=== PATIENT | male | born 1965 | race Caucasian/White ===

== ENCOUNTER 2019-01-04 16:50 | Inpatient (IN) | payer MEDICAID ==
[2019-01-04] MEDS ORDERED: Ondansetron 4 MG/2 ML SDV IVPUSH ONE (18:09)
[2019-01-04] MEDS ORDERED: HYDROmorphone 0.5 MG/0.5 ML Syringe IVPUSH ONE ×2 (18:09→19:01)
[2019-01-04] MEDS ORDERED: Sodium Chloride 0.9% 1,000 ML IV SCH (18:15)
--- NOTE | 2019-01-04 18:20 | EDM.PDOC ---
ED HPI GENERAL MEDICAL PROBLEM - General Chief Complaint: Abdominal Pain Stated Complaint: THORWING UP BLOOD Time Seen by Provider: 01/04/19 18:00 Source of Information: Reports: Patient, Family History Limitations: Reports: No Limitations - History of Present Illness INITIAL COMMENTS - FREE TEXT/NARRATIVE: 53-year-old male with severe abdominal pain, today he has now developed hematemesis. He has been ill for 10 days, he developed lower abdominal pain after lifting and was evaluated in the clinic for a possible hernia. He was evaluated again yesterday for illness and was felt to have a flulike syndrome, gastroenteritis and was started on ciprofloxacin and metronidazole. His white count was elevated yesterday but otherwise his labs were reasonably normal. Today he feels worse, still has diarrhea, and is getting weaker. No radiation of pain to the back, he has some groin or testicular pain but no dysuria. Onset: Gradual Duration: Day(s): (Has been ill for 10 days, increased abdominal pain over the past 2-3 days) Location: Reports: Abdomen Quality: Reports: Ache, Sharp Improves with: Reports: None Worsens with: Reports: Movement Associated Symptoms: Reports: Fever/Chills (Has had fever and chills over the past week, his fever just "broke today".), Malaise, Nausea/Vomiting, Weakness, Other (Hematemesis developed today). Denies: Chest Pain, Cough, Shortness of Breath Abdominal Pain Score (Numeric/FACES): 10 - Related Data Allergies Allergy/AdvReac Type Severity Reaction Status Date / Time No Known Allergies Allergy Verified 01/04/19 17:34 Home Meds: Home Meds Ciprofloxacin [Ciprofloxacin HCl] 500 mg PO BID 01/04/19 [History] metroNIDAZOLE [Flagyl] 500 mg PO TID 01/04/19 [History] Past Medical History Gastrointestinal History: Reports: GERD Musculoskeletal History: Reports: Fracture - Infectious Disease History Infectious Disease History: Reports: Chicken Pox Social & Family History - Tobacco Use Smoking Status *Q: Former Smoker Used Tobacco, but Quit: Yes Month/Year Tobacco Last Used: 3.5 years - Caffeine Use Caffeine Use: Reports: Coffee - Recreational Drug Use Recreational Drug Use: Yes Recreational Drug Type: Reports: Marijuana/Hashish ED ROS GENERAL - Review of Systems Review Of Systems: See Below Constitutional: Reports: Fever, Chills, Malaise, Decreased Appetite HEENT: Reports: No Symptoms Respiratory: Denies: Shortness of Breath, Cough Cardiovascular: Denies: Chest Pain GI/Abdominal: Reports: Abdominal Pain, Diarrhea, Hematemesis, Nausea, Vomiting : Reports: Other (Some testicular discomfort) Skin: Reports: Diaphoresis Neurological: Reports: Weakness Psychiatric: Reports: No Symptoms ED EXAM, GI/ABD - Physical Exam Exam: See Below Exam Limited By: No Limitations General Appearance: Alert, Moderate Distress Eyes: Bilateral: Normal Appearance (No jaundice) Head: Atraumatic Respiratory/Chest: No Respiratory Distress, Lungs Clear Cardiovascular: Regular Rate, Rhythm, Tachycardia GI/Abdominal Exam: Tender (Very tender diffusely with guarding and rebound, no significant distention), Abnormal Bowel Sounds (Very hypoactive) Extremities: Normal Inspection. No: Pedal Edema Neurological: Alert, Oriented Psychiatric: Flat Affect Skin Exam: Warm, Diaphoretic Course - Vital Signs Last Recorded V/S: Last Vital Signs Temp 94.3 F L 01/04/19 20:40 Pulse 98 01/04/19 20:40 Resp 16 01/04/19 20:40 BP 127/81 01/04/19 20:40 Pulse Ox 97 01/04/19 20:40 - Orders/Labs/Meds Orders: Active Orders 24 hr Category Date Time Status Sodium Chloride 0.9% [Normal Saline] 1,000 ml Med 01/04/19 18:15 Active IV ASDIRECTED Medication Orders Diphenhydramine HCl (Benadryl) 25 - 50 mg IVPUSH Q4H PRN PRN Reason: Itching Diphenhydramine HCl (Benadryl) 25 - 50 mg PO Q4H PRN PRN Reason: Itching Last Admin: 01/04/19 22:27 Dose: 50 mg Fentanyl (Sublimaze) 10 - 30 mcg IVPUSH Q1H PRN PRN Reason: Pain (severe 7-10) Last Admin: 01/04/19 22:26 Dose: 30 mcg Sodium Chloride (Normal Saline) 1,000 mls @ 500 mls/hr IV ASDIRECTED FREDRICK Last Admin: 01/04/19 18:11 Dose: 500 mls/hr Piperacillin Sod/Tazobactam (Sod 4.5 gm/ Sodium Chloride) 100 mls @ 100 mls/hr IV Q8H FREDRICK Last Admin: 01/04/19 21:01 Dose: 100 mls/hr Promethazine HCl 12.5 mg/ (Sodium Chloride) 50.5 mls @ 200 mls/hr IV Q6H PRN PRN Reason: Nausea/Vomiting Sodium Chloride (Normal Saline) 1,000 mls @ 125 mls/hr IV ASDIRECTED [facility] Morphine Sulfate (Morphine) 1 - 3 mg IVPUSH Q1H PRN PRN Reason: Pain Last Admin: 01/04/19 20:47 Dose: 2 mg Nicotine (Habitrol) 14 mg TRDERM DAILY PRN PRN Reason: smoking Ondansetron HCl (Zofran) 4 mg IVPUSH Q8H PRN PRN Reason: Nausea/Vomiting Scopolamine (Transderm-Scop) 1.5 mg TOP ONETIME PRN PRN Reason: Nausea Labs: Laboratory Tests 01/04/19 01/04/19 01/04/19 Range/Units 18:08 18:08 18:08 WBC 7.9 (4.5-11.0) K/uL RBC 5.59 (4.30-5.90) M/uL Hgb 17.5 H (12.0-15.0) g/dL Hct 50.6 (40.0-54.0) % MCV 91 (80-98) fL MCH 31 (27-31) pg MCHC 35 (32-36) % Plt Count 380 (150-400) K/uL Add Manual Diff Yes Neutrophils % (Manual) 61 (36-66) % Band Neutrophils % 10 (5-11) % Lymphocytes % (Manual) 15 L (24-44) % Monocytes % (Manual) 13 H (2-6) % Eosinophils % (Manual) 1 L (2-4) % Sodium 133 L (140-148) mmol/L Potassium 3.4 L (3.6-5.2) mmol/L Chloride 94 L (100-108) mmol/L Carbon Dioxide 26 (21-32) mmol/L Anion Gap 16.4 H (5.0-14.0) mmol/L BUN 18 (7-18) mg/dL Creatinine 2.0 H (0.8-1.3) mg/dL Est Cr Clr Drug Dosing 47.25 mL/min Estimated GFR (MDRD) 35 L (>60) Glucose 210 H (74-106) mg/dL Calcium 9.2 (8.5-10.1) mg/dL Total Bilirubin 1.1 H (0.2-1.0) mg/dL AST 59 H (15-37) U/L ALT 86 H (12-78) U/L Alkaline Phosphatase 144 H (46-116) U/L C-Reactive Protein 28.76 H (0.0-0.3) mg/dL Total Protein 7.3 (6.4-8.2) g/dL Albumin 2.5 L (3.4-5.0) g/dL Globulin 4.8 H (2.3-3.5) g/dL Albumin/Globulin Ratio 0.5 L (1.2-2.2) Amylase 13 L (25-115) U/L Lipase 41 L (73-393) U/L Meds: Medications Generic Name Dose Route Start Last Admin Trade Name Freq PRN Reason Stop Dose Admin Diphenhydramine HCl 25 - 50 mg 01/04/19 20:25 Benadryl IVPUSH Q4H PRN Itching Diphenhydramine HCl 25 - 50 mg 01/04/19 20:26 01/04/19 22:27 Benadryl PO 50 mg Q4H PRN Administration Itching Fentanyl 10 - 30 mcg 01/04/19 20:37 01/04/19 22:26 Sublimaze IVPUSH 30 mcg Q1H PRN Administration Pain (severe 7-10) Sodium Chloride 1,000 mls @ 500 mls/hr 01/04/19 18:15 01/04/19 18:11 Normal Saline IV 500 mls/hr ASDIRECTED FREDRICK Administration Piperacillin Sod/Tazobactam 100 mls @ 100 mls/hr 01/04/19 21:00 01/04/19 21: 01 Sod 4.5 gm/ Sodium Chloride IV 100 mls/hr Q8H FREDRICK Administration Promethazine HCl 12.5 mg/ 50.5 mls @ 200 mls/hr 01/04/19 20:22 Sodium Chloride IV Q6H PRN Nausea/Vomiting Sodium Chloride 1,000 mls @ 125 mls/hr 01/04/19 20:30 Normal Saline IV ASDIRECTED FREDRICK Morphine Sulfate 1 - 3 mg 01/04/19 20:30 01/04/19 20:47 Morphine IVPUSH 2 mg Q1H PRN Administration Pain Nicotine 14 mg 01/04/19 20:28 Habitrol TRDERM DAILY PRN smoking Ondansetron HCl 4 mg 01/04/19 20:20 Zofran IVPUSH Q8H PRN Nausea/Vomiting Scopolamine 1.5 mg 01/04/19 20:20 Transderm-Scop TOP ONETIME PRN Nausea Discontinued Medications Generic Name Dose Route Start Last Admin Trade Name Freq PRN Reason Stop Dose Admin Hydromorphone HCl 0.5 mg 01/04/19 18:09 01/04/19 18:16 Dilaudid IVPUSH 01/04/19 18:10 0.5 mg ONETIME ONE Administration Hydromorphone HCl 0.5 mg 01/04/19 19:01 01/04/19 19:05 Dilaudid IVPUSH 01/04/19 19:02 0.5 mg ONETIME ONE Administration Ertapenem 1 gm/ Sodium 100 mls @ 200 mls/hr 01/04/19 19:11 01/04/19 19:39 Chloride IV 01/04/19 19:40 200 mls/hr ONETIME ONE Administration Ondansetron HCl 4 mg 01/04/19 18:09 01/04/19 18:15 Zofran IVPUSH 01/04/19 18:10 4 mg ONETIME ONE Administration - Re-Assessments/Exams Free Text/Narrative Re-Assessment/Exam: 01/04/19 18:45 This patient looks acutely ill. 1 L of normal saline bolus was initiated along with 4 mg of IV Zofran and 0.5 mg of IV Dilaudid. His records from the clinic were reviewed, CBC, CMP, amylase and lipase were drawn. His kidney function was normal yesterday, if they are still stable a CT of the abdomen with IV contrast will be obtained. 01/04/19 19:32 Creatinine is now 2.0, GFR 35. Patient is likely dehydrated, a CT of the abdomen and pelvis was done without contrast. This showed a perforated appendicitis. It was discussed with Dr. Grullon, and plans for inpatient admission with IV antibiotics and reevaluation tomorrow morning with likely surgery is planned. An additional 0.5 mg of IV Dilaudid was given and 1 g of Invanz ordered. Further orders per Dr. Grullon. Departure - Departure Time of Disposition: 20:16 Disposition: Admitted As Inpatient 68 Clinical Impression: Appendicitis Qualifiers: Appendicitis type: acute appendicitis Acute appendicitis type: with localized peritonitis Appendicitis perforation presence: with perforation Appendicitis abscess presence: without abscess - Discharge Information - My Orders Last 24 Hours: My Active Orders 01/04/19 18:15 Sodium Chloride 0.9% [Normal Saline] 1,000 ml IV ASDIRECTED - Assessment/Plan Last 24 Hours: My Active Orders 01/04/19 18:15 Sodium Chloride 0.9% [Normal Saline] 1,000 ml IV ASDIRECTED
[2019-01-04] MEDS ORDERED: Ertapenem 1 GM in Sodium Chloride 0.9% 100 ML IV ONE (19:11)
--- NOTE | 2019-01-04 19:15 | CRLCT ---
INDICATION: Severe abdominal pain. TECHNIQUE: Unenhanced helical CT of the abdomen and pelvis. Sagittal coronal reformats generated. Please note that all CT scans at this facility use dose modulation, iterative reconstruction and/or weight-based dosing when appropriate to reduce radiation does to as low as reasonably achievable. FINDINGS: Small pleural effusions right greater than left with bibasilar compressive atelectasis. Small irregular opacity in the most likely represents atelectasis adjacent to a fissure in the anterior right lung. Small pericardial effusion. Small volume abdominal pelvic ascites and pneumoperitoneum is noted. In the subhepatic space on the right there is an irregular collection of gas within the mesenteric fat with a small amount of fluid which may represent phlegmonous changes without a discrete organized abscess. The appendix appears to course through this region. The appendix is dilated and the constellation of findings are consistent with perforated acute appendicitis. Some oral contrast media is seen in the bowel. The unenhanced liver, spleen, adrenal glands and pancreas are unremarkable. The abdominal aorta is normal in caliber. No definite gallstones. Diverticulosis without evidence of diverticulitis. No gross bladder masses. Normal prostate size. The acute osseous findings. IMPRESSION : 1. Findings most consistent with perforated acute appendicitis as described. 2. Mild diverticulosis. 3. Small bilateral bibasilar pleural effusions right greater than left. 4. Results telephoned to and acknowledged by Dr. Chuck Arredondo at 1910 hours on 01/04/2019. Please note that all CT scans at this facility use dose modulation, iterative reconstruction, and/or weight-based dosing when appropriate to reduce radiation dose to as low as reasonably achievable. Dictated by Misael Sterling MD @ Jan 04 2019 7:04PM Signed by Dr. Misael Sterling @ Jan 04 2019 7:15PM
[2019-01-04] MEDS ORDERED: Scopolamine 1.5 MG Transdermal Patch TOP PRN (20:20)
[2019-01-04] MEDS ORDERED: Ondansetron 4 MG/2 ML SDV IVPUSH PRN (20:20)
[2019-01-04] MEDS ORDERED: Promethazine 12.5 MG in Sodium Chloride 0.9% 50 ML IV PRN (20:22)
[2019-01-04] MEDS ORDERED: diphenhydrAMINE 50 MG/ML SDV IVPUSH PRN (20:25)
[2019-01-04] MEDS ORDERED: diphenhydrAMINE 25 MG Cap PO PRN (20:26)
[2019-01-04] MEDS ORDERED: Nicotine 14 MG/24 Hr Patch TRDERM PRN (20:28)
[2019-01-04] MEDS ORDERED: fentaNYL 100 MCG/2 ML SDV IVPUSH ONE (20:31)
[2019-01-04] MEDS: Morphine 2 MG/ML Syringe IVPUSH PRN ×2 (20:47→23:18)
[2019-01-04] MEDS: Piperacillin/Tazobactam 4.5 GM in Sodium Chloride 0.9% 100 ML IV SCH (21:01)
[2019-01-04] MEDS: fentaNYL 100 MCG/2 ML SDV IVPUSH PRN (22:26)
[2019-01-04] MEDS: Sodium Chloride 0.9% 1,000 ML IV SCH (23:13)
[2019-01-05] MEDS: Morphine 2 MG/ML Syringe IVPUSH PRN ×5 (00:26→05:44)
[2019-01-05] MEDS: Piperacillin/Tazobactam 4.5 GM in Sodium Chloride 0.9% 100 ML IV SCH ×3 (04:38→19:45)
[2019-01-05] MEDS: fentaNYL 100 MCG/2 ML SDV IVPUSH PRN ×4 (06:45→09:47)
[2019-01-05] MEDS: Sodium Chloride 0.9% 1,000 ML IV SCH ×2 (07:52→15:06)
[2019-01-05] MEDS ORDERED: Neostigmine Methylsulfate 1 MG/ML 5 ML Syringe ONE (08:04)
[2019-01-05] MEDS ORDERED: Succinylcholine 200 MG/10 ML MDV ONE (08:04)
[2019-01-05] MEDS ORDERED: Propofol 200 MG/20 ML SDV ONE (08:04)
[2019-01-05] MEDS ORDERED: Ondansetron 4 MG/2 ML SDV ONE (08:04)
[2019-01-05] MEDS ORDERED: Dexamethasone 4 MG/ML SDV ONE (08:04)
[2019-01-05] MEDS ORDERED: Rocuronium 50 MG/5 ML Vial ONE (08:04)
[2019-01-05] MEDS ORDERED: Glycopyrrolate 0.2 MG/ML 5 ML MDV ONE (08:04)
[2019-01-05] MEDS ORDERED: fentaNYL 250 MCG/5 ML SDV ONE ×2 (08:05→10:30)
[2019-01-05] MEDS ORDERED: Bupivacaine 0.5%/EPINEPHrine 1:200,000 50 ML MDV ONE (09:02)
[2019-01-05] MEDS ORDERED: Lactated Ringers 1,000 ML ONE (10:56)
[2019-01-05] MEDS ORDERED: Meropenem 500 MG SDV ONE (10:59)
[2019-01-05] MEDS ORDERED: Ketorolac 60 MG/2 ML SDV ONE (11:18)
[2019-01-05] MEDS ORDERED: Sugammadex Sodium 200 MG/2 ML VIAL ONE (11:31)
[2019-01-05] MEDS ORDERED: hydrOXYzine HCl 100 MG/2 ML SDV IM ONE (11:40)
[2019-01-05] MEDS ORDERED: Piperacillin/Tazobactam/Dext 4.5 GM in Premix Bag 1 BAG IV SCH (12:00)
--- NOTE | 2019-01-05 13:49 | OR ---
DATE OF PROCEDURE: 01/05/2019 SURGEON: Alejandro Grullon MD PROCEDURE: Transversus abdominis plane block, bilaterally. COMPLICATION: None. UPKEEP WORKER: None. RISKS: Risks, benefits, alternatives, and limitations including, but not limited to infection, bleeding, and injury to abdominal structures were explained to the patient, and he wished to proceed. PROCEDURE IN DETAIL: The patient was placed in supine position. Left transversus plane was identified first under 11 megahertz ultrasound guidance probe. The needle was introduced and approximately 80% of the solution was injected under direct visualization. The opposite side was then performed in same manner, same fashion, same technique, and same sequence using the same equipment. This was same, except for different needle and syringe. The patient tolerated the procedure well. Alejandro Grullon MD /[id number]
[2019-01-05] MEDS: Acetaminophen/HYDROcodone 325-5 MG Tab PO PRN (22:42)
[2019-01-06] MEDS: Sodium Chloride 0.9% 1,000 ML IV SCH (00:12)
[2019-01-06] MEDS: Acetaminophen/HYDROcodone 325-5 MG Tab PO PRN ×4 (03:46→19:30)
[2019-01-06] MEDS: Piperacillin/Tazobactam 4.5 GM in Sodium Chloride 0.9% 100 ML IV SCH ×3 (03:47→19:32)
[2019-01-06] MEDS: Enoxaparin 40 MG/0.4 ML Syringe SUBCUT SCH (09:19)
[2019-01-06] MEDS: Docusate Sodium 100 MG Cap PO SCH ×2 (10:39→20:54)
--- NOTE | 2019-01-06 11:19 | PN ---
DATE OF SERVICE: 01/06/2019 SUBJECTIVE: The patient is doing very well today, significantly improved. No nausea, vomiting, shortness of breath, or chest pain. Passing gas. OBJECTIVE: VITAL SIGNS: Stable. He is afebrile per nursing report. CARDIOVASCULAR: Regular rhythm and rate. RESPIRATORY: Lungs are clear to auscultation bilaterally. ABDOMEN: Incision is healing well. Drain output is cloudy serosanguineous in nature. ASSESSMENT: Status post appendectomy and abscesses. PLAN: We will continue to work on diet and activity. Anticipated plan is 7 more days of IV antibiotics, which can be done in conjunction with an outpatient status. We will continue to work on logistics of this. Alejandro Grullon MD /[id number]
[2019-01-06] MEDS ORDERED: Calcium Carbonate 500 MG Tab.Chew PO PRN (14:29)
[2019-01-06] MEDS: Magnesium Hydroxide 400 MG/5 ML Susp 30 ML Cup PO PRN (14:43)
[2019-01-07] MEDS: Acetaminophen/HYDROcodone 325-5 MG Tab PO PRN ×5 (02:27→21:30)
[2019-01-07] MEDS: Piperacillin/Tazobactam 4.5 GM in Sodium Chloride 0.9% 100 ML IV SCH ×2 (04:26→11:23)
[2019-01-07] MEDS: Enoxaparin 40 MG/0.4 ML Syringe SUBCUT SCH (09:30)
[2019-01-07] MEDS: Docusate Sodium 100 MG Cap PO SCH ×2 (09:30→21:30)
[2019-01-07] MEDS ORDERED: Vancomycin 1 GM SDV IV SCH (11:00)
--- NOTE | 2019-01-07 11:08 | PN ---
DATE OF SERVICE: 01/07/2019 SUBJECTIVE: The patient is doing well. Pain is well controlled. No nausea, vomiting, shortness of breath, or chest pain. OBJECTIVE: VITAL SIGNS: Stable. He is an afebrile. CARDIOVASCULAR: Regular rhythm and rate. RESPIRATORY: Lungs are clear to auscultation bilaterally. ABDOMEN: Incision is healing well. Drain output is minimal serosanguineous. PLAN: Continue antibiotics at this time. We will check white blood cell count today. Otherwise, same plan. Await GI activity. Alejandro Grullon MD /[id number]
[2019-01-07] MEDS: Magnesium Hydroxide 400 MG/5 ML Susp 30 ML Cup PO PRN (11:20)
[2019-01-07] MEDS ORDERED: VANCOMYCIN IV ONE (12:00)
[2019-01-07] MEDS ORDERED: SODIUM CHLORIDE 0.9% IV ONE (12:00)
[2019-01-07] MEDS: Piperacillin/Tazobactam/Dext 4.5 GM in Premix Bag 1 BAG IV SCH (20:22)
[2019-01-08] MEDS: SODIUM CHLORIDE 0.9% IV SCH ×3 (01:28→23:58)
[2019-01-08] MEDS: VANCOMYCIN IV SCH ×3 (01:28→23:58)
[2019-01-08] MEDS: Acetaminophen/HYDROcodone 325-5 MG Tab PO PRN ×5 (02:45→20:30)
[2019-01-08] MEDS: Piperacillin/Tazobactam/Dext 4.5 GM in Premix Bag 1 BAG IV SCH ×3 (04:03→20:30)
--- NOTE | 2019-01-08 09:06 | PN ---
DATE OF SERVICE: 01/08/2019 SUBJECTIVE: The patient continues to improve. His pain is well controlled. No nausea, vomiting, shortness of breath, or chest pain. OBJECTIVE: VITAL SIGNS: Stable. CARDIOVASCULAR: Regular rhythm and rate. RESPIRATORY: Lungs are clear to auscultation bilaterally. SKIN: Incisions healing well. ASSESSMENT: Status post perforated appendicitis. PLAN: We will continue with antibiotics today. White blood cell count has decreased by approximately 2000. His creatinine is now normal. Continue with same IV antibiotic plan and same diet as he is having bowel movements. Alejandro Grullon MD /[id number]
--- NOTE | 2019-01-08 09:10 | OR ---
DATE OF PROCEDURE: 01/05/2019 SURGEON: Alejandro Grullon MD PROCEDURES: 1. Laparoscopic appendectomy with abscess (60881). 2. Drainage of additional peritoneal fluid collection exclusive of appendiceal abscess ([id number]). COMPLICATIONS: None. PHYSIOLOGICAL CHEMIST: None. FINDINGS: Ruptured appendicitis. PREOPERATIVE DIAGNOSIS: Abdominal pain concerning for appendicitis. POSTOPERATIVE DIAGNOSIS: Abdominal pain concerning for appendicitis. RISKS: Risks, benefits, alternatives, and limitations including, but not limited to infection, bleeding, and perforation were explained to the patient, who wished to proceed. We also discussed open surgery, the possibility of recurrent abscesses, sepsis, cardiovascular compromise, and other concerns leading to . The patient understands these risks and wishes to proceed. PROCEDURE IN DETAIL: The patient was placed in supine position. A supraumbilical curvilinear incision was made. A Veress needle was used to enter the abdomen without abnormality. A drop test was performed without abnormality. The abdomen was subsequently insufflated and followed by an Optiview trocar. No injury was noted during entry. An additional 12 mm and additional 5 mm ports were entered under direct visualization. There was noted to be a large amount of abscess and fluid collections. The first one that would be drained would be in the right upper quadrant, exclusive of the appendix; the second and third around the splenic area and in the pelvis. Once these were drained, the appendix was identified. This was transected with haro load staplers under direct visualization. This was sent to Pathology. Over the next 30 minutes, greater than 6 L of warm irrigant fluid was used in conjunction with meropenem-containing solution to thoroughly irrigate the abdomen. Two 10 Dangelo-Card drains were placed, one near the liver and one in the appendiceal abscess. The abdomen was inspected for any other abnormalities. No abnormalities were noted. The air was removed. The wounds were closed with 3-0 Vicryl and 4-0 Vicryl in interrupted running fashion. Drains were sutured into place. The patient tolerated the procedure well. Alejandro Grullon MD /[id number]
--- NOTE | 2019-01-08 09:19 | CONS ---
DATE OF SERVICE: 01/05/2019 REFERRING PHYSICIAN: CONSULTING PHYSICIAN: lAejandro Grullon MD REASON FOR CONSULTATION: Abdominal pain. HISTORY OF PRESENT ILLNESS: This is a 53-year-old male with severe abdominal pain, which is associated with some nausea and vomiting. This has been present over approximately 10 days. The patient was seen in the clinic and was treated for gastroenteritis and started on Cipro and Flagyl. He continued to have elevated white blood cell count. The patient did get a CT scan, which is concerning for a ruptured appendicitis. PAST MEDICAL HISTORY: Gastroesophageal reflux disease. SOCIAL HISTORY: He does not smoke. FAMILY HISTORY: Noncontributory. REVIEW OF SYSTEMS: GENERAL: The patient is appropriate for condition. CONSTITUTIONAL: The patient is appropriate for condition. HEENT: No upper respiratory tract infections. RESPIRATORY: No shortness of breath. CARDIOVASCULAR: No history of myocardial infarction. GI: Abdominal pain, as described above, with nausea and vomiting. GENITOURINARY: No dysuria. NEUROLOGIC: No symptoms. PSYCH: No symptoms. The remainder of review of systems was reviewed and was negative. PHYSICAL EXAMINATION: VITAL SIGNS: Temperature reported to be 95.1, blood pressure 124/72, pulse 96, respirations 16, and 97% on room air. GENERAL: The patient is resting comfortably. HEENT: Pupils are equal. NECK: Supple. LUNGS: Clear. CARDIOVASCULAR: Regular rhythm and rate. ABDOMEN: Pain with palpation, right lower quadrant. EXTREMITIES: Full range of motion. NEUROLOGIC: Oriented x3. PSYCH: No gross depression. LABORATORY RESULTS: White blood cell count of 19.8, hemoglobin is stable at 14.9, and creatinine is 1.7. ASSESSMENT: Ruptured appendicitis. PLAN: To the operating room for laparoscopic appendectomy. We discussed risks, benefits, alternatives, and limitations including, but not limited to infection, bleeding, requirement for the interval appendectomy, open surgery, sepsis, and other risks not listed here. The patient understands these risks and wished to proceed. Alejandro Grullon MD /[id number]
[2019-01-08] MEDS: Enoxaparin 40 MG/0.4 ML Syringe SUBCUT SCH (10:48)
[2019-01-08] MEDS: Docusate Sodium 100 MG Cap PO SCH ×2 (10:48→20:31)
[2019-01-09] MEDS: Acetaminophen/HYDROcodone 325-5 MG Tab PO PRN ×6 (00:22→22:25)
[2019-01-09] MEDS: Piperacillin/Tazobactam/Dext 4.5 GM in Premix Bag 1 BAG IV SCH ×3 (03:03→19:52)
[2019-01-09] MEDS ORDERED: Iohexol 300 MG/ML 30 ML Bottle PO ONE (08:21)
[2019-01-09] MEDS ORDERED: Iopamidol 612 MG/ML 150 ML Bottle IV ONE (09:53)
[2019-01-09] MEDS: Docusate Sodium 100 MG Cap PO SCH ×2 (10:25→20:47)
[2019-01-09] MEDS: Enoxaparin 40 MG/0.4 ML Syringe SUBCUT SCH (10:25)
--- NOTE | 2019-01-09 11:13 | PN ---
DATE OF SERVICE: 01/09/2019 SUBJECTIVE: The patient is doing well. Having bowel movements. No nausea, vomiting, shortness of breath, or chest pain. OBJECTIVE: VITAL SIGNS: Stable. CARDIOVASCULAR: Regular rhythm and rate. RESPIRATORY: Lungs are clear to auscultation bilaterally. ABDOMEN: Nondistended. ASSESSMENT: Status post perforated appendicitis and abscesses drainage. PLAN: The patient's white count is slightly elevated today. We will repeat a CT scan to look for further abscesses. Alejandro Grullon MD /[id number]
--- NOTE | 2019-01-09 12:15 | CRLCT ---
INDICATION: Increased white blood cell count. TECHNIQUE: Volumetric helical scanning of the abdomen and pelvis was performed with oral contrast material and 135 cc of Isovue 300 contrast material IV. Coronal and sagittal reconstructions were obtained. COMPARISON: Abdomen/pelvis CT of 01/04/2019. FINDINGS: In the interval, but an appendectomy has been performed. Several drainage tubes are present in the right paracolic gutter, one extending into the right subphrenic space. Fluid in the pelvis on the previous examination has decreased. Between the rectum and bladder is a 4.5 x 3.3 x 3.3 cm fluid collection which may represent abscess. Several smaller areas of loculation are demonstrated in the pelvis. Another loculated fluid collection, possibly representing abscess, is demonstrated along the inferomedial margin of the right hepatic lobe and measures 4.1 x 2.9 x 2.6 cm. Several smaller fluid collections along the inferior margin of the right lobe are demonstrated. A small amount of free air is again demonstrated. The liver is normal in size, shape and attenuation. No bile duct dilation is evident. The spleen is within normal limits. The adrenal glands are unremarkable. The pancreas is within normal limits. The kidneys are unremarkable. No lymphadenopathy is evident. The prostate is within normal limits. Small pleural effusions are present bilaterally along with passive atelectasis in the lower lobe bases. The heart is normal in size. Calcified coronary arterial plaque is demonstrated. IMPRESSION: 1. Interval appendectomy with placement of 2 drainage tubes in the right paracolic gutter, one extending into the right subphrenic space. 2. Loculated 4.5 x 3.3 x 3.3 cm in the pelvis between the rectum and bladder and 4.1 x 2.9 x 2.6 cm likely fluid collection along the inferior margin of the right hepatic lobe. These could represent abscesses. Additional smaller loculated collections are demonstrated in the pelvis and along the inferior edge of the liver. 3. Small pleural effusions bilaterally and passive atelectasis in the lower lobe bases. 4. Coronary artery disease. Please note that all CT scans at this facility use dose modulation, iterative reconstruction, and/or weight-based dosing when appropriate to reduce radiation dose to as low as reasonably achievable. Dictated by Ede Jackson MD @ Jan 09 2019 11:55AM Signed by Dr. Ede Jackson @ Jan 09 2019 12:14PM
[2019-01-09] MEDS ORDERED: Bupivacaine 0.5%/EPINEPHrine 1:200,000 50 ML MDV ONE (13:39)
[2019-01-09] MEDS: VANCOMYCIN IV SCH (14:25)
[2019-01-09] MEDS: SODIUM CHLORIDE 0.9% IV SCH (14:25)
[2019-01-09] MEDS ORDERED: Propofol 200 MG/20 ML SDV ONE (14:27)
[2019-01-09] MEDS ORDERED: Neostigmine Methylsulfate 1 MG/ML 5 ML Syringe ONE (14:27)
[2019-01-09] MEDS ORDERED: Rocuronium 50 MG/5 ML Vial ONE (14:27)
[2019-01-09] MEDS ORDERED: Glycopyrrolate 0.2 MG/ML 5 ML MDV ONE (14:27)
[2019-01-09] MEDS ORDERED: Dexamethasone 4 MG/ML SDV ONE (14:27)
[2019-01-09] MEDS ORDERED: Succinylcholine 200 MG/10 ML MDV ONE (14:27)
[2019-01-09] MEDS ORDERED: Ondansetron 4 MG/2 ML SDV ONE (14:27)
[2019-01-09] MEDS ORDERED: fentaNYL 250 MCG/5 ML SDV ONE (14:29)
[2019-01-09] MEDS ORDERED: Midazolam 1 MG/ML 2 ML SDV ONE (16:00)
[2019-01-09] MEDS ORDERED: Meropenem 500 MG SDV ONE (16:50)
[2019-01-09] MEDS ORDERED: Ketorolac 60 MG/2 ML SDV ONE (17:00)
[2019-01-09] MEDS: fentaNYL 100 MCG/2 ML SDV IVPUSH PRN (19:21)
[2019-01-09] MEDS: Sodium Chloride 0.9% 1,000 ML IV SCH (19:51)
[2019-01-10] MEDS: fentaNYL 100 MCG/2 ML SDV IVPUSH PRN ×4 (00:22→19:33)
[2019-01-10] MEDS: Acetaminophen/HYDROcodone 325-5 MG Tab PO PRN ×4 (02:37→16:43)
[2019-01-10] MEDS: Piperacillin/Tazobactam/Dext 4.5 GM in Premix Bag 1 BAG IV SCH ×3 (04:13→19:36)
--- NOTE | 2019-01-10 07:58 | OR ---
DATE OF PROCEDURE: 01/09/2019 SURGEON: Alejandro Grullon MD PREOPERATIVE DIAGNOSIS: Abdominal abscesses secondary to appendicitis. POSTOPERATIVE DIAGNOSIS: Abdominal abscesses secondary to appendicitis. PROCEDURES: 1. Diagnostic laparoscopy. 2. Drainage of intraabdominal abscesses x2. COMPLICATIONS: None. PULPER TENDER: None. FINDINGS: Two fluid collections. PATHOLOGY: Cultures of fluid collection. RISKS: Risks, benefits, alternatives, and limitations including, but not limited to infection, bleeding, and injury to abdominal structures were explained to the patient, who wished to proceed. PROCEDURE IN DETAIL: The patient was placed in the supine position. The supraumbilical linear incision was reopened. A Veress needle was used to enter the abdomen without abnormality. The abdomen was subsequently insufflated. This was after the Veress needle was introduced and the Optiview trocar was then followed. No evidence of enterotomy or injury was noted. An additional 5 mm port and one upsized 12 mm port were entered through the previous port locations. CT scan had showed fluid collections between the sigmoid colon and the bladder and in proximity to the right side of the liver. These were investigated first. There was noted fluid collections and phlegmon-type appearance to these. One of fluid collections had a drain in close proximity to it. This was moved into location after culture and irrigation with meropenem-containing solution. A total of 5 L of irrigation will be performed during this procedure. Other areas of the abdomen were investigated for additional fluid collections and removed. No abnormalities were noted. There was no abscess in proximity to the appendectomy location. The air was removed and the wounds were irrigated, closed with 3-0 Vicryl and 4-0 Vicryl in an interrupted running fashion after irrigating port sites. Dermabond was applied. Of note, the patient was noted to have a right inguinal hernia, which is immaterial to his infection but noted during diagnostic laparoscopy. Alejandro Grullon MD /[id number]
[2019-01-10] MEDS: Sodium Chloride 0.9% 1,000 ML IV SCH ×2 (09:26→22:42)
[2019-01-10] MEDS: Enoxaparin 40 MG/0.4 ML Syringe SUBCUT SCH (09:29)
[2019-01-10] MEDS: Docusate Sodium 100 MG Cap PO SCH ×2 (09:29→20:59)
--- NOTE | 2019-01-10 11:15 | PCM.SURGPN ---
- General Info Date of Service: 01/10/19 Date of Surgery/Procedure: 01/09/19 POD#: 1 Post-Op Diagnosis: Perforated appendicitis and post operative intraperitoneal abscess Admission Diagnosis/Problem: Appendicitis Functional Status: Reports: Pain Controlled, Tolerating Diet, Ambulating, Urinating, Incentive Spirometry - Review of Systems General: Reports: No Symptoms HEENT: Reports: No Symptoms Pulmonary: Reports: No Symptoms Cardiovascular: Reports: No Symptoms Gastrointestinal: Reports: No Symptoms, Flatus. Denies: Nausea, Vomiting Genitourinary: Reports: No Symptoms Musculoskeletal: Reports: No Symptoms Skin: Reports: No Symptoms Neurological: Reports: No Symptoms Psychiatric: Reports: No Symptoms - Patient Data Vitals - Most Recent: Last Vital Signs Temp 96.4 F 01/10/19 11:00 Pulse 75 01/10/19 11:00 Resp 16 01/10/19 11:00 BP 133/68 01/10/19 11:00 Pulse Ox 95 01/10/19 11:00 Weight - Most Recent: 199 lb 4.766 oz I&O - Last 24 Hours: Intake & Output 01/09/19 01/10/19 01/10/19 22:59 06:59 14:59 Intake Total 590 1720 650 Output Total 1320 1100 525 Balance -730 620 125 Lab Results Last 24 Hrs: Laboratory Results - last 24 hr 01/09/19 01/10/19 01/10/19 Range/Units 12:01 05:45 05:45 WBC 18.7 H (4.5-11.0) K/uL RBC 3.69 L (4.30-5.90) M/uL Hgb 11.1 L (12.0-15.0) g/dL Hct 34.8 L (40.0-54.0) % MCV 94 (80-98) fL MCH 30 (27-31) pg MCHC 32 (32-36) % Plt Count 533 H (150-400) K/uL Sodium 138 L (140-148) mmol/L Potassium 4.0 (3.6-5.2) mmol/L Chloride 103 (100-108) mmol/L Carbon Dioxide 28 (21-32) mmol/L Anion Gap 11.0 (5.0-14.0) mmol/L BUN 8 (7-18) mg/dL Creatinine 0.8 (0.8-1.3) mg/dL Est Cr Clr Drug Dosing 115.87 mL/min Estimated GFR (MDRD) > 60 (>60) Glucose 111 H (74-106) mg/dL Calcium 8.2 L (8.5-10.1) mg/dL Vancomycin Trough 7.0 L (10.0-20.0) ug/mL Neeraj Results Last 24 Hrs: Microbiology 01/09/19 17:25 Gram Stain - Final Abdominal Fluid - Aspirate Med Orders - Current: Current Medications Hydrocodone Bitart/Acetaminophen ([place] 325-5 Mg) 1 - 2 tab PO Q4H PRN PRN Reason: Pain Last Admin: 01/10/19 07:47 Dose: 2 tab Calcium Carbonate/Glycine (Tums) 1,000 mg PO Q2H PRN PRN Reason: Indigestion Last Admin: 01/06/19 17:17 Dose: 1,000 mg Diphenhydramine HCl (Benadryl) 25 - 50 mg IVPUSH Q4H PRN PRN Reason: Itching Diphenhydramine HCl (Benadryl) 25 - 50 mg PO Q4H PRN PRN Reason: Itching Last Admin: 01/04/19 22:27 Dose: 50 mg Docusate Sodium (Colace) 100 mg PO BID [facility] Last Admin: 01/10/19 09:29 Dose: 100 mg Enoxaparin Sodium (Lovenox) 40 mg SUBCUT DAILY [facility] Last Admin: 01/10/19 09:29 Dose: 40 mg Fentanyl (Sublimaze) 10 - 30 mcg IVPUSH Q1H PRN PRN Reason: Pain (severe 7-10) Last Admin: 01/10/19 08:23 Dose: 10 mcg Promethazine HCl 12.5 mg/ (Sodium Chloride) 50.5 mls @ 200 mls/hr IV Q6H PRN PRN Reason: Nausea/Vomiting Piperacillin/Tazobactam/ (Dextrose 4.5 gm/ Premix) 100 mls @ 200 mls/hr IV Q8H [facility] Last Admin: 01/10/19 04:13 Dose: 200 mls/hr Sodium Chloride (Normal Saline) 81 mls @ 3.5 mls/sec IV ASDIRECTED [facility] Last Admin: 01/09/19 10:43 Dose: 3.5 mls/sec Vancomycin HCl 1.5 gm/ Sodium (Chloride) 250 mls @ 167 mls/hr IV Q8H [facility] Last Admin: 01/10/19 05:20 Dose: 167 mls/hr Sodium Chloride (Normal Saline) 1,000 mls @ 100 mls/hr IV ASDIRECTED [facility] Last Admin: 01/10/19 09:26 Dose: 100 mls/hr Magnesium Hydroxide (Milk Of Magnesia) 30 ml PO BID PRN PRN Reason: Constipation Last Admin: 01/07/19 11:20 Dose: 30 ml Morphine Sulfate (Morphine) 1 - 3 mg IVPUSH Q1H PRN PRN Reason: Pain Last Admin: 01/05/19 05:44 Dose: 2 mg Nicotine (Habitrol) 14 mg TRDERM DAILY PRN PRN Reason: smoking Ondansetron HCl (Zofran) 4 mg IVPUSH Q8H PRN PRN Reason: Nausea/Vomiting Last Admin: 01/06/19 14:39 Dose: 4 mg Scopolamine (Transderm-Scop) 1.5 mg TOP ONETIME PRN PRN Reason: Nausea Discontinued Medications Bupivacaine HCl/Epinephrine Bitart (Marcaine 0.5%/Epinephrine 1:200,000) Confirm Administered Dose 50 ml .ROUTE .STK-MED ONE Stop: 01/05/19 09:03 Last Admin: 01/05/19 12:05 Dose: 40 ml Bupivacaine HCl/Epinephrine Bitart ([place] 0.5%/Epinephrine 1:200,000) Confirm Administered Dose 50 ml .ROUTE .STK-MED ONE Stop: 01/09/19 13:40 Last Admin: 01/09/19 17:08 Dose: 40 ml Ropivacaine 43 ml/Dexamethasone 8 mg/Epinephrine HCl 0.4 mg/ Sodium Chloride 34.6 ml 0 ml NERVRT ASDIRECTED [facility] Last Admin: 01/05/19 11:13 Dose: 80 syringe Dexamethasone (Dexamethasone) Confirm Administered Dose 4 mg .ROUTE .STK-MED ONE Stop: 01/05/19 08:05 Dexamethasone (Dexamethasone) Confirm Administered Dose 4 mg .ROUTE .STK-MED ONE Stop: 01/09/19 14:28 Fentanyl (Sublimaze) Confirm Administered Dose 250 mcg .ROUTE .STK-MED ONE Stop: 01/05/19 08:06 Fentanyl (Sublimaze) Confirm Administered Dose 250 mcg .ROUTE .STK-MED ONE Stop: 01/05/19 10:31 Fentanyl (Sublimaze) Confirm Administered Dose 250 mcg .ROUTE .STK-MED ONE Stop: 01/09/19 14:30 Glycopyrrolate (Robinul) Confirm Administered Dose 1 mg .ROUTE .STK-MED ONE Stop: 01/05/19 08:05 Glycopyrrolate (Robinul) Confirm Administered Dose 1 mg .ROUTE .STK-MED ONE Stop: 01/09/19 14:28 Hydromorphone HCl (Dilaudid) 0.5 mg IVPUSH ONETIME ONE Stop: 01/04/19 18:10 Last Admin: 01/04/19 18:16 Dose: 0.5 mg Hydromorphone HCl (Dilaudid) 0.5 mg IVPUSH ONETIME ONE Stop: 01/04/19 19:02 Last Admin: 01/04/19 19:05 Dose: 0.5 mg Hydroxyzine HCl (Vistaril) 100 mg IM ONETIME ONE Stop: 01/05/19 11:41 Last Admin: 01/05/19 11:43 Dose: 100 mg Sodium Chloride (Normal Saline) 1,000 mls @ 500 mls/hr IV ASDIRECTED [facility] Last Admin: 01/04/19 18:11 Dose: 500 mls/hr Ertapenem 1 gm/ Sodium (Chloride) 100 mls @ 200 mls/hr IV ONETIME ONE Stop: 01/04/19 19:40 Last Admin: 01/04/19 19:39 Dose: 200 mls/hr Piperacillin Sod/Tazobactam (Sod 4.5 gm/ Sodium Chloride) 100 mls @ 100 mls/hr IV Q8H [facility] Last Admin: 01/05/19 04:38 Dose: 100 mls/hr Sodium Chloride (Normal Saline) 1,000 mls @ 125 mls/hr IV ASDIRECTED [facility] Last Admin: 01/06/19 00:12 Dose: 125 mls/hr Piperacillin Sod/Tazobactam (Sod 4.5 gm/ Sodium Chloride) 100 mls @ 100 mls/hr IV Q8H [facility] Last Admin: 01/07/19 11:23 Dose: 100 mls/hr Lactated Ringer's (Ringers, Lactated) Confirm Administered Dose 1,000 mls @ as directed .ROUTE .STK-MED ONE Stop: 01/05/19 10:57 Vancomycin HCl 1.8 gm/ Sodium (Chloride) 500 mls @ 250 mls/hr IV ONETIME ONE Stop: 01/07/19 13:59 Last Admin: 01/07/19 12:26 Dose: 250 mls/hr Vancomycin HCl 1.35 gm/ Sodium (Chloride) 250 mls @ 167 mls/hr IV Q12H [facility] Last Admin: 01/09/19 14:25 Dose: Not Given Iohexol (Omnipaque) 20 ml PO ONETIME ONE Stop: 01/09/19 08:22 Last Admin: 01/09/19 08:56 Dose: 20 ml Iopamidol (Isovue-300 (61%)) 135 ml IV . DIRECTED ONE Stop: 01/09/19 09:54 Last Admin: 01/09/19 10:43 Dose: 135 ml Ketorolac Tromethamine (Toradol) Confirm Administered Dose 60 mg .ROUTE .STK- MED ONE Stop: 01/05/19 11:19 Ketorolac Tromethamine (Toradol) Confirm Administered Dose 60 mg .ROUTE .STK- MED ONE Stop: 01/09/19 17:01 Meropenem (Merrem) Confirm Administered Dose 500 mg .ROUTE .STK-MED ONE Stop: 01/05/19 11:00 Last Admin: 01/05/19 12:04 Dose: 500 mg Meropenem (Merrem) Confirm Administered Dose 500 mg .ROUTE .STK-MED ONE Stop: 01/09/19 16:51 Last Admin: 01/09/19 16:52 Dose: 500 mg Midazolam HCl (Versed 1 Mg/Ml) Confirm Administered Dose 2 mg .ROUTE .STK-MED ONE Stop: 01/09/19 16:01 Neostigmine Methylsulfate (Neostigmine) Confirm Administered Dose 5 mg .ROUTE .STK-MED ONE Stop: 01/05/19 08:05 Neostigmine Methylsulfate (Neostigmine) Confirm Administered Dose 5 mg .ROUTE .STK-MED ONE Stop: 01/09/19 14:28 Ondansetron HCl (Zofran) 4 mg IVPUSH ONETIME ONE Stop: 01/04/19 18:10 Last Admin: 01/04/19 18:15 Dose: 4 mg Ondansetron HCl (Zofran) Confirm Administered Dose 4 mg .ROUTE .STK-MED ONE Stop: 01/05/19 08:05 Ondansetron HCl (Zofran) Confirm Administered Dose 4 mg .ROUTE .STK-MED ONE Stop: 01/09/19 14:28 Propofol (Diprivan 20 Ml) Confirm Administered Dose 200 mg .ROUTE .STK-MED ONE Stop: 01/05/19 08:05 Propofol (Diprivan 20 Ml) Confirm Administered Dose 200 mg .ROUTE .STK-MED ONE Stop: 01/09/19 14:28 Pyridostigmine [place] (Regonol) Confirm Administered Dose 10 mg .ROUTE .STK- MED ONE Stop: 01/09/19 14:57 Rocuronium [place] (Zemuron) Confirm Administered Dose 50 mg .ROUTE .STK-MED ONE Stop: 01/05/19 08:05 Rocuronium [place] (Zemuron) Confirm Administered Dose 50 mg .ROUTE .STK-MED ONE Stop: 01/09/19 14:28 Succinylcholine Chloride (Quelicin) Confirm Administered Dose 200 mg .ROUTE .STK -MED ONE Stop: 01/05/19 08:05 Succinylcholine Chloride (Quelicin) Confirm Administered Dose 200 mg .ROUTE .STK -MED ONE Stop: 01/09/19 14:28 Sugammadex Sodium (Bridion) Confirm Administered Dose 200 mg .ROUTE .STK-MED ONE Stop: 01/05/19 11:32 Vancomycin HCl (Vancomycin) 0 gm IV .PHARMACY TO DOSE [facility] Stop: 01/07/19 11:01 - Exam Wound/Incisions: Healing Well, No Drainage General: Alert, Oriented, Cooperative, No Acute Distress Lungs: Clear to Auscultation, Normal Respiratory Effort Cardiovascular: Regular Rate, Regular Rhythm GI/Abdominal Exam: Normal Bowel Sounds Extremities: Normal Inspection Skin: Warm, Dry, Intact Psy/Mental Status: Alert, Normal Affect - Problem List Review Problem List Initiated/Reviewed/Updated: Yes - My Orders Last 24 Hours: Active Orders 24 hr Category Date Time Status Regular Diet [DIET] Diet 01/10/19 Breakfast Active BASIC METABOLIC PANEL,BMP [CHEM] DAILY Lab 01/11/19 05:11 Ordered BASIC METABOLIC PANEL,BMP [CHEM] DAILY Lab 01/12/19 05:11 Ordered CBC W/O DIFF,HEMOGRAM [HEME] DAILY Lab 01/11/19 05:11 Ordered CBC W/O DIFF,HEMOGRAM [HEME] DAILY Lab 01/12/19 05:11 Ordered CULTURE ANAEROBIC [RM] Routine Lab 01/09/19 17:25 Results CULTURE WOUND + SMEAR [RM] Routine Lab 01/09/19 17:25 Results Sodium Chloride 0.9% [Normal Saline] 1,000 ml Med 01/09/19 18:45 Active IV ASDIRECTED Vancomycin 1.5 gm Med 01/09/19 14:00 Active Sodium Chloride 0.9% [Normal Saline] 250 ml IV Q8H Medication Orders Hydrocodone Bitart/Acetaminophen ([place] 325-5 Mg) 1 - 2 tab PO Q4H PRN PRN Reason: Pain Last Admin: 01/10/19 07:47 Dose: 2 tab Admin: 01/10/19 02:37 Dose: 2 tab Admin: 01/09/19 22:25 Dose: 2 tab Admin: 01/09/19 18:26 Dose: 2 tab Admin: 01/09/19 13:00 Dose: 2 tab Admin: 01/09/19 08:55 Dose: 2 tab Admin: 01/09/19 04:37 Dose: 2 tab Admin: 01/09/19 00:22 Dose: 2 tab Admin: 01/08/19 20:30 Dose: 2 tab Admin: 01/08/19 16:23 Dose: 2 tab Admin: 01/08/19 12:17 Dose: 2 tab Admin: 01/08/19 08:32 Dose: 2 tab Admin: 01/08/19 02:45 Dose: 2 tab Admin: 01/07/19 21:30 Dose: 2 tab Admin: 01/07/19 16:43 Dose: 2 tab Admin: 01/07/19 11:19 Dose: 2 tab Admin: 01/07/19 06:47 Dose: 2 tab Admin: 01/07/19 02:27 Dose: 2 tab Admin: 01/06/19 19:30 Dose: 2 tab Admin: 01/06/19 14:18 Dose: 2 tab Admin: 01/06/19 09:14 Dose: 2 tab Admin: 01/06/19 03:46 Dose: 2 tab Admin: 01/05/19 22:42 Dose: 2 tab Calcium Carbonate/Glycine (Tums) 1,000 mg PO Q2H PRN PRN Reason: Indigestion Last Admin: 01/06/19 17:17 Dose: 1,000 mg Diphenhydramine HCl (Benadryl) 25 - 50 mg IVPUSH Q4H PRN PRN Reason: Itching Diphenhydramine HCl (Benadryl) 25 - 50 mg PO Q4H PRN PRN Reason: Itching Last Admin: 01/04/19 22:27 Dose: 50 mg Docusate Sodium (Colace) 100 mg PO BID [facility] Last Admin: 01/10/19 09:29 Dose: 100 mg Admin: 01/09/19 20:47 Dose: Not Given Admin: 01/09/19 10:25 Dose: 100 mg Admin: 01/08/19 20:31 Dose: Not Given Admin: 01/08/19 10:48 Dose: 100 mg Admin: 01/07/19 21:30 Dose: 100 mg Admin: 01/07/19 09:30 Dose: 100 mg Admin: 01/06/19 20:54 Dose: 100 mg Admin: 01/06/19 10:39 Dose: 100 mg Enoxaparin Sodium (Lovenox) 40 mg SUBCUT DAILY [facility] Last Admin: 01/10/19 09:29 Dose: 40 mg Admin: 01/09/19 10:25 Dose: 40 mg Admin: 01/08/19 10:48 Dose: 40 mg Admin: 01/07/19 09:30 Dose: 40 mg Admin: 01/06/19 09:19 Dose: 40 mg Fentanyl (Sublimaze) 10 - 30 mcg IVPUSH Q1H PRN PRN Reason: Pain (severe 7-10) Last Admin: 01/10/19 08:23 Dose: 10 mcg Admin: 01/10/19 00:22 Dose: 30 mcg Admin: 01/09/19 19:21 Dose: 30 mcg Admin: 01/05/19 09:47 Dose: 30 mcg Admin: 01/05/19 08:45 Dose: 30 mcg Admin: 01/05/19 07:50 Dose: 30 mcg Admin: 01/05/19 06:45 Dose: 30 mcg Admin: 01/04/19 22:26 Dose: 30 mcg Promethazine HCl 12.5 mg/ (Sodium Chloride) 50.5 mls @ 200 mls/hr IV Q6H PRN PRN Reason: Nausea/Vomiting Piperacillin/Tazobactam/ (Dextrose 4.5 gm/ Premix) 100 mls @ 200 mls/hr IV Q8H [facility] Last Admin: 01/10/19 04:13 Dose: 200 mls/hr Admin: 01/09/19 19:52 Dose: 200 mls/hr Admin: 01/09/19 12:17 Dose: 200 mls/hr Admin: 01/09/19 03:03 Dose: 200 mls/hr Admin: 01/08/19 20:30 Dose: 200 mls/hr Admin: 01/08/19 12:12 Dose: 200 mls/hr Admin: 01/08/19 04:03 Dose: 200 mls/hr Admin: 01/07/19 20:22 Dose: 200 mls/hr Sodium Chloride (Normal Saline) 81 mls @ 3.5 mls/sec IV ASDIRECTED [facility] Last Admin: 01/09/19 10:43 Dose: 3.5 mls/sec Vancomycin HCl 1.5 gm/ Sodium (Chloride) 250 mls @ 167 mls/hr IV Q8H [facility] Last Admin: 01/10/19 05:20 Dose: 167 mls/hr Admin: 01/09/19 22:26 Dose: 167 mls/hr Admin: 01/09/19 14:24 Dose: 167 mls/hr Sodium Chloride (Normal Saline) 1,000 mls @ 100 mls/hr IV ASDIRECTED [facility] Last Admin: 01/10/19 09:26 Dose: 100 mls/hr Infusion: 01/10/19 05:51 Dose: 100 mls/hr Admin: 01/09/19 19:51 Dose: 100 mls/hr Magnesium Hydroxide (Milk Of Magnesia) 30 ml PO BID PRN PRN Reason: Constipation Last Admin: 01/07/19 11:20 Dose: 30 ml Admin: 01/06/19 14:43 Dose: 30 ml Morphine Sulfate (Morphine) 1 - 3 mg IVPUSH Q1H PRN PRN Reason: Pain Last Admin: 01/05/19 05:44 Dose: 2 mg Admin: 01/05/19 04:43 Dose: 2 mg Admin: 01/05/19 02:57 Dose: 2 mg Admin: 01/05/19 01:43 Dose: 2 mg Admin: 01/05/19 00:26 Dose: 2 mg Admin: 01/04/19 23:18 Dose: 2 mg Admin: 01/04/19 20:47 Dose: 2 mg Nicotine (Habitrol) 14 mg TRDERM DAILY PRN PRN Reason: smoking Ondansetron HCl (Zofran) 4 mg IVPUSH Q8H PRN PRN Reason: Nausea/Vomiting Last Admin: 01/06/19 14:39 Dose: 4 mg Scopolamine (Transderm-Scop) 1.5 mg TOP ONETIME PRN PRN Reason: Nausea - Assessment Assessment (Free Text/Narrative):: Eating without problems. WBC still up at 18K. - Plan Plan (Free Text/Narrative):: Continue antibiotics.
[2019-01-10] MEDS: Acetaminophen/oxyCODONE 325-5 MG Tab PO PRN (20:59)
[2019-01-11] MEDS: Acetaminophen/oxyCODONE 325-5 MG Tab PO PRN ×6 (00:58→22:07)
[2019-01-11] MEDS: Piperacillin/Tazobactam/Dext 4.5 GM in Premix Bag 1 BAG IV SCH ×3 (03:19→21:10)
--- NOTE | 2019-01-11 06:29 | PCM.SURGPN ---
- General Info Date of Service: 01/11/19 Date of Surgery/Procedure: 01/05/19 POD#: 6 Post-Op Diagnosis: Perforated appendicitis with purulent peritonitis and subsequent abcess Admission Diagnosis/Problem: Appendicitis Functional Status: Reports: Pain Controlled, Tolerating Diet, Ambulating, Urinating - Review of Systems General: Reports: No Symptoms HEENT: Reports: No Symptoms Pulmonary: Reports: No Symptoms Cardiovascular: Reports: No Symptoms Gastrointestinal: Reports: No Symptoms Genitourinary: Reports: No Symptoms Musculoskeletal: Reports: No Symptoms Skin: Reports: No Symptoms Neurological: Reports: No Symptoms Psychiatric: Reports: No Symptoms - Patient Data Vitals - Most Recent: Last Vital Signs Temp 95.9 F 01/11/19 03:00 Pulse 92 01/11/19 03:00 Resp 18 01/11/19 03:00 BP 168/82 H 01/11/19 03:00 Pulse Ox 93 L 01/11/19 03:00 Weight - Most Recent: 199 lb 4.766 oz I&O - Last 24 Hours: Intake & Output 01/10/19 01/10/19 01/11/19 14:59 22:59 06:59 Intake Total 456 014 1041 Output Total 1315 1280 1000 Balance -325 -440 1226 Lab Results Last 24 Hrs: Laboratory Results - last 24 hr 01/11/19 01/11/19 Range/Units 05:50 05:50 WBC 15.8 H (4.5-11.0) K/uL RBC 4.01 L (4.30-5.90) M/uL Hgb 12.1 (12.0-15.0) g/dL Hct 38.1 L (40.0-54.0) % MCV 95 (80-98) fL MCH 30 (27-31) pg MCHC 32 (32-36) % Plt Count 640 H (150-400) K/uL Sodium 139 L (140-148) mmol/L Potassium 3.9 (3.6-5.2) mmol/L Chloride 103 (100-108) mmol/L Carbon Dioxide 28 (21-32) mmol/L Anion Gap 11.9 (5.0-14.0) mmol/L BUN 7 (7-18) mg/dL Creatinine 0.9 (0.8-1.3) mg/dL Est Cr Clr Drug Dosing 103.00 mL/min Estimated GFR (MDRD) > 60 (>60) Glucose 103 (74-106) mg/dL Calcium 8.3 L (8.5-10.1) mg/dL Med Orders - Current: Current Medications Calcium Carbonate/Glycine (Tums) 1,000 mg PO Q2H PRN PRN Reason: Indigestion Last Admin: 01/06/19 17:17 Dose: 1,000 mg Diphenhydramine HCl (Benadryl) 25 - 50 mg IVPUSH Q4H PRN PRN Reason: Itching Diphenhydramine HCl (Benadryl) 25 - 50 mg PO Q4H PRN PRN Reason: Itching Last Admin: 01/04/19 22:27 Dose: 50 mg Docusate Sodium (Colace) 100 mg PO BID [facility] Last Admin: 01/10/19 20:59 Dose: 100 mg Enoxaparin Sodium (Lovenox) 40 mg SUBCUT DAILY [facility] Last Admin: 01/10/19 09:29 Dose: 40 mg Fentanyl (Sublimaze) 10 - 30 mcg IVPUSH Q1H PRN PRN Reason: Pain (severe 7-10) Last Admin: 01/10/19 19:33 Dose: 30 mcg Promethazine HCl 12.5 mg/ (Sodium Chloride) 50.5 mls @ 200 mls/hr IV Q6H PRN PRN Reason: Nausea/Vomiting Piperacillin/Tazobactam/ (Dextrose 4.5 gm/ Premix) 100 mls @ 200 mls/hr IV Q8H [facility] Last Admin: 01/11/19 03:19 Dose: 200 mls/hr Sodium Chloride (Normal Saline) 81 mls @ 3.5 mls/sec IV ASDIRECTED [facility] Last Admin: 01/09/19 10:43 Dose: 3.5 mls/sec Vancomycin HCl 1.5 gm/ Sodium (Chloride) 250 mls @ 167 mls/hr IV Q8H [facility] Last Admin: 01/11/19 05:16 Dose: 167 mls/hr Sodium Chloride (Normal Saline) 1,000 mls @ 100 mls/hr IV ASDIRECTED [facility] Last Admin: 01/10/19 22:42 Dose: 100 mls/hr Magnesium Hydroxide (Milk Of Magnesia) 30 ml PO BID PRN PRN Reason: Constipation Last Admin: 01/07/19 11:20 Dose: 30 ml Morphine Sulfate (Morphine) 1 - 3 mg IVPUSH Q1H PRN PRN Reason: Pain Last Admin: 01/05/19 05:44 Dose: 2 mg Nicotine (Habitrol) 14 mg TRDERM DAILY PRN PRN Reason: smoking Ondansetron HCl (Zofran) 4 mg IVPUSH Q8H PRN PRN Reason: Nausea/Vomiting Last Admin: 01/06/19 14:39 Dose: 4 mg Oxycodone/Acetaminophen (Percocet 325-5 Mg) 0 tab PO Q4H PRN PRN Reason: Pain Last Admin: 01/11/19 05:15 Dose: 2 tab Scopolamine (Transderm-Scop) 1.5 mg TOP ONETIME PRN PRN Reason: Nausea Discontinued Medications Hydrocodone Bitart/Acetaminophen ([place] 325-5 Mg) 1 - 2 tab PO Q4H PRN PRN Reason: Pain Last Admin: 01/10/19 16:43 Dose: 2 tab Bupivacaine HCl/Epinephrine Bitart (Marcaine 0.5%/Epinephrine 1:200,000) Confirm Administered Dose 50 ml .ROUTE .STK-MED ONE Stop: 01/05/19 09:03 Last Admin: 01/05/19 12:05 Dose: 40 ml Bupivacaine HCl/Epinephrine Bitart (Marcaine 0.5%/Epinephrine 1:200,000) Confirm Administered Dose 50 ml .ROUTE .STK-MED ONE Stop: 01/09/19 13:40 Last Admin: 01/09/19 17:08 Dose: 40 ml Ropivacaine 43 ml/Dexamethasone 8 mg/Epinephrine HCl 0.4 mg/ Sodium Chloride 34.6 ml 0 ml NERVRT ASDIRECTED [facility] Last Admin: 01/05/19 11:13 Dose: 80 syringe Dexamethasone (Dexamethasone) Confirm Administered Dose 4 mg .ROUTE .STK-MED ONE Stop: 01/05/19 08:05 Dexamethasone (Dexamethasone) Confirm Administered Dose 4 mg .ROUTE .STK-MED ONE Stop: 01/09/19 14:28 Fentanyl (Sublimaze) Confirm Administered Dose 250 mcg .ROUTE .STK-MED ONE Stop: 01/05/19 08:06 Fentanyl (Sublimaze) Confirm Administered Dose 250 mcg .ROUTE .STK-MED ONE Stop: 01/05/19 10:31 Fentanyl (Sublimaze) Confirm Administered Dose 250 mcg .ROUTE .STK-MED ONE Stop: 01/09/19 14:30 Glycopyrrolate (Robinul) Confirm Administered Dose 1 mg .ROUTE .STK-MED ONE Stop: 01/05/19 08:05 Glycopyrrolate (Robinul) Confirm Administered Dose 1 mg .ROUTE .STK-MED ONE Stop: 01/09/19 14:28 Hydromorphone HCl (Dilaudid) 0.5 mg IVPUSH ONETIME ONE Stop: 01/04/19 18:10 Last Admin: 01/04/19 18:16 Dose: 0.5 mg Hydromorphone HCl (Dilaudid) 0.5 mg IVPUSH ONETIME ONE Stop: 01/04/19 19:02 Last Admin: 01/04/19 19:05 Dose: 0.5 mg Hydroxyzine HCl (Vistaril) 100 mg IM ONETIME ONE Stop: 01/05/19 11:41 Last Admin: 01/05/19 11:43 Dose: 100 mg Sodium Chloride (Normal Saline) 1,000 mls @ 500 mls/hr IV ASDIRECTED [facility] Last Admin: 01/04/19 18:11 Dose: 500 mls/hr Ertapenem 1 gm/ Sodium (Chloride) 100 mls @ 200 mls/hr IV ONETIME ONE Stop: 01/04/19 19:40 Last Admin: 01/04/19 19:39 Dose: 200 mls/hr Piperacillin Sod/Tazobactam (Sod 4.5 gm/ Sodium Chloride) 100 mls @ 100 mls/hr IV Q8H [facility] Last Admin: 01/05/19 04:38 Dose: 100 mls/hr Sodium Chloride (Normal Saline) 1,000 mls @ 125 mls/hr IV ASDIRECTED [facility] Last Admin: 01/06/19 00:12 Dose: 125 mls/hr Piperacillin Sod/Tazobactam (Sod 4.5 gm/ Sodium Chloride) 100 mls @ 100 mls/hr IV Q8H [facility] Last Admin: 01/07/19 11:23 Dose: 100 mls/hr Lactated Ringer's (Ringers, Lactated) Confirm Administered Dose 1,000 mls @ as directed .ROUTE .STK-MED ONE Stop: 01/05/19 10:57 Vancomycin HCl 1.8 gm/ Sodium (Chloride) 500 mls @ 250 mls/hr IV ONETIME ONE Stop: 01/07/19 13:59 Last Admin: 01/07/19 12:26 Dose: 250 mls/hr Vancomycin HCl 1.35 gm/ Sodium (Chloride) 250 mls @ 167 mls/hr IV Q12H [facility] Last Admin: 01/09/19 14:25 Dose: Not Given Iohexol (Omnipaque) 20 ml PO ONETIME ONE Stop: 01/09/19 08:22 Last Admin: 01/09/19 08:56 Dose: 20 ml Iopamidol (Isovue-300 (61%)) 135 ml IV . DIRECTED ONE Stop: 01/09/19 09:54 Last Admin: 01/09/19 10:43 Dose: 135 ml Ketorolac Tromethamine (Toradol) Confirm Administered Dose 60 mg .ROUTE .STK- MED ONE Stop: 01/05/19 11:19 Ketorolac Tromethamine (Toradol) Confirm Administered Dose 60 mg .ROUTE .STK- MED ONE Stop: 01/09/19 17:01 Meropenem (Merrem) Confirm Administered Dose 500 mg .ROUTE .STK-MED ONE Stop: 01/05/19 11:00 Last Admin: 01/05/19 12:04 Dose: 500 mg Meropenem (Merrem) Confirm Administered Dose 500 mg .ROUTE .STK-MED ONE Stop: 01/09/19 16:51 Last Admin: 01/09/19 16:52 Dose: 500 mg Midazolam HCl (Versed 1 Mg/Ml) Confirm Administered Dose 2 mg .ROUTE .STK-MED ONE Stop: 01/09/19 16:01 Neostigmine Methylsulfate (Neostigmine) Confirm Administered Dose 5 mg .ROUTE .STK-MED ONE Stop: 01/05/19 08:05 Neostigmine Methylsulfate (Neostigmine) Confirm Administered Dose 5 mg .ROUTE .STK-MED ONE Stop: 01/09/19 14:28 Ondansetron HCl (Zofran) 4 mg IVPUSH ONETIME ONE Stop: 01/04/19 18:10 Last Admin: 01/04/19 18:15 Dose: 4 mg Ondansetron HCl (Zofran) Confirm Administered Dose 4 mg .ROUTE .STK-MED ONE Stop: 01/05/19 08:05 Ondansetron HCl (Zofran) Confirm Administered Dose 4 mg .ROUTE .STK-MED ONE Stop: 01/09/19 14:28 Propofol (Diprivan 20 Ml) Confirm Administered Dose 200 mg .ROUTE .STK-MED ONE Stop: 01/05/19 08:05 Propofol (Diprivan 20 Ml) Confirm Administered Dose 200 mg .ROUTE .STK-MED ONE Stop: 01/09/19 14:28 Pyridostigmine [place] (Regonol) Confirm Administered Dose 10 mg .ROUTE .STK- MED ONE Stop: 01/09/19 14:57 Rocuronium [place] (Zemuron) Confirm Administered Dose 50 mg .ROUTE .STK-MED ONE Stop: 01/05/19 08:05 Rocuronium [place] (Zemuron) Confirm Administered Dose 50 mg .ROUTE .STK-MED ONE Stop: 01/09/19 14:28 Succinylcholine Chloride (Quelicin) Confirm Administered Dose 200 mg .ROUTE .STK -MED ONE Stop: 01/05/19 08:05 Succinylcholine Chloride (Quelicin) Confirm Administered Dose 200 mg .ROUTE .STK -MED ONE Stop: 01/09/19 14:28 Sugammadex Sodium (Bridion) Confirm Administered Dose 200 mg .ROUTE .STK-MED ONE Stop: 01/05/19 11:32 Vancomycin HCl (Vancomycin) 0 gm IV .PHARMACY TO DOSE [facility] Stop: 01/07/19 11:01 - Exam Wound/Incisions: Healing Well, No Drainage Quality Assessment: DVT Prophylaxis General: Alert, Oriented, Cooperative, No Acute Distress Lungs: Clear to Auscultation, Normal Respiratory Effort Cardiovascular: Regular Rate, Regular Rhythm GI/Abdominal Exam: Normal Bowel Sounds Extremities: Normal Inspection Skin: Warm, Dry, Intact Neurological: No New Focal Deficit Psy/Mental Status: Alert, Normal Affect, Normal Mood - Problem List & Annotations (1) Appendicitis SNOMED Code(s): 20503924 Code(s): K37 - UNSPECIFIED APPENDICITIS Status: Acute Current Visit: Yes Qualifiers: Appendicitis type: acute appendicitis Acute appendicitis type: with localized peritonitis Appendicitis perforation presence: with perforation Appendicitis abscess presence: without abscess - Problem List Review Problem List Initiated/Reviewed/Updated: Yes - My Orders Last 24 Hours: Active Orders 24 hr Category Date Time Status Regular Diet [DIET] Diet 01/10/19 Breakfast Active BASIC METABOLIC PANEL,BMP [CHEM] DAILY Lab 01/12/19 05:11 Ordered CBC W/O DIFF,HEMOGRAM [HEME] DAILY Lab 01/12/19 05:11 Ordered VANCOMYCIN TROUGH [CHEM] Routine Lab 01/12/19 13:30 Ordered Acetaminophen/oxyCODONE [Percocet 325-5 MG] Med 01/10/19 20:27 Active See Dose Instructions PO Q4H PRN Medication Orders Calcium Carbonate/Glycine (Tums) 1,000 mg PO Q2H PRN PRN Reason: Indigestion Last Admin: 01/06/19 17:17 Dose: 1,000 mg Diphenhydramine HCl (Benadryl) 25 - 50 mg IVPUSH Q4H PRN PRN Reason: Itching Diphenhydramine HCl (Benadryl) 25 - 50 mg PO Q4H PRN PRN Reason: Itching Last Admin: 01/04/19 22:27 Dose: 50 mg Docusate Sodium (Colace) 100 mg PO BID [facility] Last Admin: 01/10/19 20:59 Dose: 100 mg Admin: 01/10/19 09:29 Dose: 100 mg Admin: 01/09/19 20:47 Dose: Not Given Admin: 01/09/19 10:25 Dose: 100 mg Admin: 01/08/19 20:31 Dose: Not Given Admin: 01/08/19 10:48 Dose: 100 mg Admin: 01/07/19 21:30 Dose: 100 mg Admin: 01/07/19 09:30 Dose: 100 mg Admin: 01/06/19 20:54 Dose: 100 mg Admin: 01/06/19 10:39 Dose: 100 mg Enoxaparin Sodium (Lovenox) 40 mg SUBCUT DAILY [facility] Last Admin: 01/10/19 09:29 Dose: 40 mg Admin: 01/09/19 10:25 Dose: 40 mg Admin: 01/08/19 10:48 Dose: 40 mg Admin: 01/07/19 09:30 Dose: 40 mg Admin: 01/06/19 09:19 Dose: 40 mg Fentanyl (Sublimaze) 10 - 30 mcg IVPUSH Q1H PRN PRN Reason: Pain (severe 7-10) Last Admin: 01/10/19 19:33 Dose: 30 mcg Admin: 01/10/19 12:58 Dose: 30 mcg Admin: 01/10/19 08:23 Dose: 10 mcg Admin: 01/10/19 00:22 Dose: 30 mcg Admin: 01/09/19 19:21 Dose: 30 mcg Admin: 01/05/19 09:47 Dose: 30 mcg Admin: 01/05/19 08:45 Dose: 30 mcg Admin: 01/05/19 07:50 Dose: 30 mcg Admin: 01/05/19 06:45 Dose: 30 mcg Admin: 01/04/19 22:26 Dose: 30 mcg Promethazine HCl 12.5 mg/ (Sodium Chloride) 50.5 mls @ 200 mls/hr IV Q6H PRN PRN Reason: Nausea/Vomiting Piperacillin/Tazobactam/ (Dextrose 4.5 gm/ Premix) 100 mls @ 200 mls/hr IV Q8H [facility] Last Admin: 01/11/19 03:19 Dose: 200 mls/hr Admin: 01/10/19 19:36 Dose: 200 mls/hr Admin: 01/10/19 11:32 Dose: 200 mls/hr Admin: 01/10/19 04:13 Dose: 200 mls/hr Admin: 01/09/19 19:52 Dose: 200 mls/hr Admin: 01/09/19 12:17 Dose: 200 mls/hr Admin: 01/09/19 03:03 Dose: 200 mls/hr Admin: 01/08/19 20:30 Dose: 200 mls/hr Admin: 01/08/19 12:12 Dose: 200 mls/hr Admin: 01/08/19 04:03 Dose: 200 mls/hr Admin: 01/07/19 20:22 Dose: 200 mls/hr Sodium Chloride (Normal Saline) 81 mls @ 3.5 mls/sec IV ASDIRECTED [facility] Last Admin: 01/09/19 10:43 Dose: 3.5 mls/sec Vancomycin HCl 1.5 gm/ Sodium (Chloride) 250 mls @ 167 mls/hr IV Q8H [facility] Last Admin: 01/11/19 05:16 Dose: 167 mls/hr Admin: 01/10/19 21:01 Dose: 167 mls/hr Admin: 01/10/19 14:53 Dose: 167 mls/hr Admin: 01/10/19 05:20 Dose: 167 mls/hr Admin: 01/09/19 22:26 Dose: 167 mls/hr Admin: 01/09/19 14:24 Dose: 167 mls/hr Sodium Chloride (Normal Saline) 1,000 mls @ 100 mls/hr IV ASDIRECTED [facility] Last Admin: 01/10/19 22:42 Dose: 100 mls/hr Infusion: 01/10/19 19:26 Dose: 100 mls/hr Admin: 01/10/19 09:26 Dose: 100 mls/hr Infusion: 01/10/19 05:51 Dose: 100 mls/hr Admin: 01/09/19 19:51 Dose: 100 mls/hr Magnesium Hydroxide (Milk Of Magnesia) 30 ml PO BID PRN PRN Reason: Constipation Last Admin: 01/07/19 11:20 Dose: 30 ml Admin: 01/06/19 14:43 Dose: 30 ml Morphine Sulfate (Morphine) 1 - 3 mg IVPUSH Q1H PRN PRN Reason: Pain Last Admin: 01/05/19 05:44 Dose: 2 mg Admin: 01/05/19 04:43 Dose: 2 mg Admin: 01/05/19 02:57 Dose: 2 mg Admin: 01/05/19 01:43 Dose: 2 mg Admin: 01/05/19 00:26 Dose: 2 mg Admin: 01/04/19 23:18 Dose: 2 mg Admin: 01/04/19 20:47 Dose: 2 mg Nicotine (Habitrol) 14 mg TRDERM DAILY PRN PRN Reason: smoking Ondansetron HCl (Zofran) 4 mg IVPUSH Q8H PRN PRN Reason: Nausea/Vomiting Last Admin: 01/06/19 14:39 Dose: 4 mg Oxycodone/Acetaminophen (Percocet 325-5 Mg) 0 tab PO Q4H PRN PRN Reason: Pain Last Admin: 01/11/19 05:15 Dose: 2 tab Admin: 01/11/19 00:58 Dose: 2 tab Admin: 01/10/19 20:59 Dose: 2 tab Scopolamine (Transderm-Scop) 1.5 mg TOP ONETIME PRN PRN Reason: Nausea - Assessment Assessment (Free Text/Narrative):: WBC slowly coming down. He appears well. - Plan Plan (Free Text/Narrative):: No change.
[2019-01-11] MEDS: Docusate Sodium 100 MG Cap PO SCH ×2 (09:02→21:13)
[2019-01-11] MEDS: Enoxaparin 40 MG/0.4 ML Syringe SUBCUT SCH (09:02)
[2019-01-12] MEDS: Acetaminophen/oxyCODONE 325-5 MG Tab PO PRN ×6 (02:07→23:09)
[2019-01-12] MEDS: Piperacillin/Tazobactam/Dext 4.5 GM in Premix Bag 1 BAG IV SCH ×3 (04:12→20:22)
[2019-01-12] MEDS: Docusate Sodium 100 MG Cap PO SCH ×2 (09:05→20:23)
[2019-01-12] MEDS: Enoxaparin 40 MG/0.4 ML Syringe SUBCUT SCH (09:05)
[2019-01-12] MEDS: Vancomycin 1.3 GM in Sodium Chloride 0.9% 250 ML IV SCH (16:52)
--- NOTE | 2019-01-12 17:15 | PCM.SURGPN ---
- General Info Date of Service: 01/12/19 Date of Surgery/Procedure: 01/05/19 POD#: 7 Post-Op Diagnosis: Perforated appendicitis Admission Diagnosis/Problem: Appendicitis Functional Status: Reports: Pain Controlled, Tolerating Diet, Ambulating, Urinating, Incentive Spirometry - Review of Systems General: Reports: No Symptoms HEENT: Reports: No Symptoms Pulmonary: Reports: No Symptoms Cardiovascular: Reports: No Symptoms Gastrointestinal: Reports: No Symptoms Genitourinary: Reports: No Symptoms Musculoskeletal: Reports: No Symptoms Skin: Reports: No Symptoms Neurological: Reports: No Symptoms Psychiatric: Reports: No Symptoms - Patient Data Vitals - Most Recent: Last Vital Signs Temp 96.5 F 01/12/19 11:11 Pulse 94 01/12/19 11:11 Resp 16 01/12/19 11:11 BP 162/82 H 01/12/19 11:11 Pulse Ox 95 01/12/19 11:11 Weight - Most Recent: 199 lb 4.766 oz I&O - Last 24 Hours: Intake & Output 01/12/19 01/12/19 01/12/19 06:59 14:59 22:59 Intake Total 1350 500 Output Total 20 Balance 1330 500 Lab Results Last 24 Hrs: Laboratory Results - last 24 hr 01/12/19 01/12/19 01/12/19 Range/Units 04:15 04:15 13:15 WBC 16.0 H (4.5-11.0) K/uL RBC 3.99 L (4.30-5.90) M/uL Hgb 11.8 L (12.0-15.0) g/dL Hct 37.6 L (40.0-54.0) % MCV 94 (80-98) fL MCH 30 (27-31) pg MCHC 31 L (32-36) % Plt Count 651 H (150-400) K/uL Sodium 138 L (140-148) mmol/L Potassium 3.9 (3.6-5.2) mmol/L Chloride 102 (100-108) mmol/L Carbon Dioxide 26 (21-32) mmol/L Anion Gap 13.9 (5.0-14.0) mmol/L BUN 6 L (7-18) mg/dL Creatinine 0.9 (0.8-1.3) mg/dL Est Cr Clr Drug Dosing 103.00 mL/min Estimated GFR (MDRD) > 60 (>60) Glucose 103 (74-106) mg/dL Calcium 8.4 L (8.5-10.1) mg/dL Vancomycin Trough 20.0 (10.0-20.0) ug/mL Neeraj Results Last 24 Hrs: Microbiology 01/09/19 17:25 Gram Stain - Final Abdominal Fluid - Aspirate Wound Culture - Preliminary NO GROWTH AFTER 2 DAYS Anaerobic Culture - Preliminary NO GROWTH AFTER 2 DAYS Med Orders - Current: Current Medications Calcium Carbonate/Glycine (Tums) 1,000 mg PO Q2H PRN PRN Reason: Indigestion Last Admin: 01/06/19 17:17 Dose: 1,000 mg Diphenhydramine HCl (Benadryl) 25 - 50 mg IVPUSH Q4H PRN PRN Reason: Itching Diphenhydramine HCl (Benadryl) 25 - 50 mg PO Q4H PRN PRN Reason: Itching Last Admin: 01/04/19 22:27 Dose: 50 mg Docusate Sodium (Colace) 100 mg PO BID [facility] Last Admin: 01/12/19 09:05 Dose: 100 mg Enoxaparin Sodium (Lovenox) 40 mg SUBCUT DAILY [facility] Last Admin: 01/12/19 09:05 Dose: 40 mg Fentanyl (Sublimaze) 10 - 30 mcg IVPUSH Q1H PRN PRN Reason: Pain (severe 7-10) Last Admin: 01/10/19 19:33 Dose: 30 mcg Promethazine HCl 12.5 mg/ (Sodium Chloride) 50.5 mls @ 200 mls/hr IV Q6H PRN PRN Reason: Nausea/Vomiting Piperacillin/Tazobactam/ (Dextrose 4.5 gm/ Premix) 100 mls @ 200 mls/hr IV Q8H [facility] Last Admin: 01/12/19 12:07 Dose: 200 mls/hr Sodium Chloride (Normal Saline) 1,000 mls @ 0 mls/hr IV ASDIRECTED [facility] Last Admin: 01/10/19 22:42 Dose: 100 mls/hr Vancomycin HCl 1.3 gm/ Sodium (Chloride) 250 mls @ 167 mls/hr IV Q8H [facility] Last Admin: 01/12/19 16:52 Dose: 167 mls/hr Magnesium Hydroxide (Milk Of Magnesia) 30 ml PO BID PRN PRN Reason: Constipation Last Admin: 01/07/19 11:20 Dose: 30 ml Morphine Sulfate (Morphine) 1 - 3 mg IVPUSH Q1H PRN PRN Reason: Pain Last Admin: 01/05/19 05:44 Dose: 2 mg Nicotine (Habitrol) 14 mg TRDERM DAILY PRN PRN Reason: smoking Ondansetron HCl (Zofran) 4 mg IVPUSH Q8H PRN PRN Reason: Nausea/Vomiting Last Admin: 01/06/19 14:39 Dose: 4 mg Oxycodone/Acetaminophen (Percocet 325-5 Mg) 0 tab PO Q4H PRN PRN Reason: Pain Last Admin: 01/12/19 14:24 Dose: 2 tab Scopolamine (Transderm-Scop) 1.5 mg TOP ONETIME PRN PRN Reason: Nausea Discontinued Medications Hydrocodone Bitart/Acetaminophen ([place] 325-5 Mg) 1 - 2 tab PO Q4H PRN PRN Reason: Pain Last Admin: 01/10/19 16:43 Dose: 2 tab Bupivacaine HCl/Epinephrine Bitart (Marcaine 0.5%/Epinephrine 1:200,000) Confirm Administered Dose 50 ml .ROUTE .STK-MED ONE Stop: 01/05/19 09:03 Last Admin: 01/05/19 12:05 Dose: 40 ml Bupivacaine HCl/Epinephrine Bitart (Marcaine 0.5%/Epinephrine 1:200,000) Confirm Administered Dose 50 ml .ROUTE .STK-MED ONE Stop: 01/09/19 13:40 Last Admin: 01/09/19 17:08 Dose: 40 ml Ropivacaine 43 ml/Dexamethasone 8 mg/Epinephrine HCl 0.4 mg/ Sodium Chloride 34.6 ml 0 ml NERVRT ASDIRECTED [facility] Last Admin: 01/05/19 11:13 Dose: 80 syringe Dexamethasone (Dexamethasone) Confirm Administered Dose 4 mg .ROUTE .STK-MED ONE Stop: 01/05/19 08:05 Dexamethasone (Dexamethasone) Confirm Administered Dose 4 mg .ROUTE .STK-MED ONE Stop: 01/09/19 14:28 Fentanyl (Sublimaze) Confirm Administered Dose 250 mcg .ROUTE .STK-MED ONE Stop: 01/05/19 08:06 Fentanyl (Sublimaze) Confirm Administered Dose 250 mcg .ROUTE .STK-MED ONE Stop: 01/05/19 10:31 Fentanyl (Sublimaze) Confirm Administered Dose 250 mcg .ROUTE .STK-MED ONE Stop: 01/09/19 14:30 Glycopyrrolate (Robinul) Confirm Administered Dose 1 mg .ROUTE .STK-MED ONE Stop: 01/05/19 08:05 Glycopyrrolate (Robinul) Confirm Administered Dose 1 mg .ROUTE .STK-MED ONE Stop: 01/09/19 14:28 Hydromorphone HCl (Dilaudid) 0.5 mg IVPUSH ONETIME ONE Stop: 01/04/19 18:10 Last Admin: 01/04/19 18:16 Dose: 0.5 mg Hydromorphone HCl (Dilaudid) 0.5 mg IVPUSH ONETIME ONE Stop: 01/04/19 19:02 Last Admin: 01/04/19 19:05 Dose: 0.5 mg Hydroxyzine HCl (Vistaril) 100 mg IM ONETIME ONE Stop: 01/05/19 11:41 Last Admin: 01/05/19 11:43 Dose: 100 mg Sodium Chloride (Normal Saline) 1,000 mls @ 500 mls/hr IV ASDIRECTED [facility] Last Admin: 01/04/19 18:11 Dose: 500 mls/hr Ertapenem 1 gm/ Sodium (Chloride) 100 mls @ 200 mls/hr IV ONETIME ONE Stop: 01/04/19 19:40 Last Admin: 01/04/19 19:39 Dose: 200 mls/hr Piperacillin Sod/Tazobactam (Sod 4.5 gm/ Sodium Chloride) 100 mls @ 100 mls/hr IV Q8H [facility] Last Admin: 01/05/19 04:38 Dose: 100 mls/hr Sodium Chloride (Normal Saline) 1,000 mls @ 125 mls/hr IV ASDIRECTED [facility] Last Admin: 01/06/19 00:12 Dose: 125 mls/hr Piperacillin Sod/Tazobactam (Sod 4.5 gm/ Sodium Chloride) 100 mls @ 100 mls/hr IV Q8H [facility] Last Admin: 01/07/19 11:23 Dose: 100 mls/hr Lactated Ringer's (Ringers, Lactated) Confirm Administered Dose 1,000 mls @ as directed .ROUTE .STK-MED ONE Stop: 01/05/19 10:57 Vancomycin HCl 1.8 gm/ Sodium (Chloride) 500 mls @ 250 mls/hr IV ONETIME ONE Stop: 01/07/19 13:59 Last Admin: 01/07/19 12:26 Dose: 250 mls/hr Vancomycin HCl 1.35 gm/ Sodium (Chloride) 250 mls @ 167 mls/hr IV Q12H [facility] Last Admin: 01/09/19 14:25 Dose: Not Given Sodium Chloride (Normal Saline) 81 mls @ 3.5 mls/sec IV ASDIRECTED [facility] Last Admin: 01/09/19 10:43 Dose: 3.5 mls/sec Vancomycin HCl 1.5 gm/ Sodium (Chloride) 250 mls @ 167 mls/hr IV Q8H [facility] Last Admin: 01/12/19 05:15 Dose: 167 mls/hr Iohexol (Omnipaque) 20 ml PO ONETIME ONE Stop: 01/09/19 08:22 Last Admin: 01/09/19 08:56 Dose: 20 ml Iopamidol (Isovue-300 (61%)) 135 ml IV . DIRECTED ONE Stop: 01/09/19 09:54 Last Admin: 01/09/19 10:43 Dose: 135 ml Ketorolac Tromethamine (Toradol) Confirm Administered Dose 60 mg .ROUTE .STK- MED ONE Stop: 01/05/19 11:19 Ketorolac Tromethamine (Toradol) Confirm Administered Dose 60 mg .ROUTE .STK- MED ONE Stop: 01/09/19 17:01 Meropenem (Merrem) Confirm Administered Dose 500 mg .ROUTE .STK-MED ONE Stop: 01/05/19 11:00 Last Admin: 01/05/19 12:04 Dose: 500 mg Meropenem (Merrem) Confirm Administered Dose 500 mg .ROUTE .STK-MED ONE Stop: 01/09/19 16:51 Last Admin: 01/09/19 16:52 Dose: 500 mg Midazolam HCl (Versed 1 Mg/Ml) Confirm Administered Dose 2 mg .ROUTE .STK-MED ONE Stop: 01/09/19 16:01 Neostigmine Methylsulfate (Neostigmine) Confirm Administered Dose 5 mg .ROUTE .STK-MED ONE Stop: 01/05/19 08:05 Neostigmine Methylsulfate (Neostigmine) Confirm Administered Dose 5 mg .ROUTE .STK-MED ONE Stop: 01/09/19 14:28 Ondansetron HCl (Zofran) 4 mg IVPUSH ONETIME ONE Stop: 01/04/19 18:10 Last Admin: 01/04/19 18:15 Dose: 4 mg Ondansetron HCl (Zofran) Confirm Administered Dose 4 mg .ROUTE .STK-MED ONE Stop: 01/05/19 08:05 Ondansetron HCl (Zofran) Confirm Administered Dose 4 mg .ROUTE .STK-MED ONE Stop: 01/09/19 14:28 Propofol (Diprivan 20 Ml) Confirm Administered Dose 200 mg .ROUTE .STK-MED ONE Stop: 01/05/19 08:05 Propofol (Diprivan 20 Ml) Confirm Administered Dose 200 mg .ROUTE .STK-MED ONE Stop: 01/09/19 14:28 Pyridostigmine [place] (Regonol) Confirm Administered Dose 10 mg .ROUTE .STK- MED ONE Stop: 01/09/19 14:57 Rocuronium [place] (Zemuron) Confirm Administered Dose 50 mg .ROUTE .STK-MED ONE Stop: 01/05/19 08:05 Rocuronium [place] (Zemuron) Confirm Administered Dose 50 mg .ROUTE .STK-MED ONE Stop: 01/09/19 14:28 Succinylcholine Chloride (Quelicin) Confirm Administered Dose 200 mg .ROUTE .STK -MED ONE Stop: 01/05/19 08:05 Succinylcholine Chloride (Quelicin) Confirm Administered Dose 200 mg .ROUTE .STK -MED ONE Stop: 01/09/19 14:28 Sugammadex Sodium (Bridion) Confirm Administered Dose 200 mg .ROUTE .STK-MED ONE Stop: 01/05/19 11:32 Vancomycin HCl (Vancomycin) 0 gm IV .PHARMACY TO DOSE [facility] Stop: 01/07/19 11:01 - Exam Wound/Incisions: Healing Well, No Drainage General: Alert, Oriented, Cooperative Lungs: Clear to Auscultation, Normal Respiratory Effort Cardiovascular: Regular Rate, Regular Rhythm GI/Abdominal Exam: Normal Bowel Sounds Extremities: Normal Inspection Skin: Warm, Dry, Intact Neurological: No New Focal Deficit Psy/Mental Status: Alert, Normal Affect, Normal Mood - Problem List & Annotations (1) Appendicitis SNOMED Code(s): 68003060 Code(s): K37 - UNSPECIFIED APPENDICITIS Status: Acute Current Visit: Yes Qualifiers: Appendicitis type: acute appendicitis Acute appendicitis type: with localized peritonitis Appendicitis perforation presence: with perforation Appendicitis abscess presence: without abscess - Problem List Review Problem List Initiated/Reviewed/Updated: Yes - My Orders Last 24 Hours: Active Orders 24 hr Category Date Time Status CBC W/O DIFF,HEMOGRAM [HEME] DAILY Lab 01/13/19 05:11 Ordered CBC W/O DIFF,HEMOGRAM [HEME] DAILY Lab 01/14/19 05:11 Ordered CBC W/O DIFF,HEMOGRAM [HEME] DAILY Lab 01/15/19 05:11 Ordered CBC W/O DIFF,HEMOGRAM [HEME] DAILY Lab 01/16/19 05:11 Ordered Vancomycin 1.3 gm Med 01/12/19 16:00 Active Sodium Chloride 0.9% [Normal Saline] 250 ml IV Q8H Medication Orders Calcium Carbonate/Glycine (Tums) 1,000 mg PO Q2H PRN PRN Reason: Indigestion Last Admin: 01/06/19 17:17 Dose: 1,000 mg Diphenhydramine HCl (Benadryl) 25 - 50 mg IVPUSH Q4H PRN PRN Reason: Itching Diphenhydramine HCl (Benadryl) 25 - 50 mg PO Q4H PRN PRN Reason: Itching Last Admin: 01/04/19 22:27 Dose: 50 mg Docusate Sodium (Colace) 100 mg PO BID [facility] Last Admin: 01/12/19 09:05 Dose: 100 mg Admin: 01/11/19 21:13 Dose: 100 mg Admin: 01/11/19 09:02 Dose: 100 mg Admin: 01/10/19 20:59 Dose: 100 mg Admin: 01/10/19 09:29 Dose: 100 mg Admin: 01/09/19 20:47 Dose: Not Given Admin: 01/09/19 10:25 Dose: 100 mg Admin: 01/08/19 20:31 Dose: Not Given Admin: 01/08/19 10:48 Dose: 100 mg Admin: 01/07/19 21:30 Dose: 100 mg Admin: 01/07/19 09:30 Dose: 100 mg Admin: 01/06/19 20:54 Dose: 100 mg Admin: 01/06/19 10:39 Dose: 100 mg Enoxaparin Sodium (Lovenox) 40 mg SUBCUT DAILY [facility] Last Admin: 01/12/19 09:05 Dose: 40 mg Admin: 01/11/19 09:02 Dose: 40 mg Admin: 01/10/19 09:29 Dose: 40 mg Admin: 01/09/19 10:25 Dose: 40 mg Admin: 01/08/19 10:48 Dose: 40 mg Admin: 01/07/19 09:30 Dose: 40 mg Admin: 01/06/19 09:19 Dose: 40 mg Fentanyl (Sublimaze) 10 - 30 mcg IVPUSH Q1H PRN PRN Reason: Pain (severe 7-10) Last Admin: 01/10/19 19:33 Dose: 30 mcg Admin: 01/10/19 12:58 Dose: 30 mcg Admin: 01/10/19 08:23 Dose: 10 mcg Admin: 01/10/19 00:22 Dose: 30 mcg Admin: 01/09/19 19:21 Dose: 30 mcg Admin: 01/05/19 09:47 Dose: 30 mcg Admin: 01/05/19 08:45 Dose: 30 mcg Admin: 01/05/19 07:50 Dose: 30 mcg Admin: 01/05/19 06:45 Dose: 30 mcg Admin: 01/04/19 22:26 Dose: 30 mcg Promethazine HCl 12.5 mg/ (Sodium Chloride) 50.5 mls @ 200 mls/hr IV Q6H PRN PRN Reason: Nausea/Vomiting Piperacillin/Tazobactam/ (Dextrose 4.5 gm/ Premix) 100 mls @ 200 mls/hr IV Q8H [facility] Last Admin: 01/12/19 12:07 Dose: 200 mls/hr Admin: 01/12/19 04:12 Dose: 200 mls/hr Admin: 01/11/19 21:10 Dose: 200 mls/hr Admin: 01/11/19 14:15 Dose: 200 mls/hr Admin: 01/11/19 03:19 Dose: 200 mls/hr Admin: 01/10/19 19:36 Dose: 200 mls/hr Admin: 01/10/19 11:32 Dose: 200 mls/hr Admin: 01/10/19 04:13 Dose: 200 mls/hr Admin: 01/09/19 19:52 Dose: 200 mls/hr Admin: 01/09/19 12:17 Dose: 200 mls/hr Admin: 01/09/19 03:03 Dose: 200 mls/hr Admin: 01/08/19 20:30 Dose: 200 mls/hr Admin: 01/08/19 12:12 Dose: 200 mls/hr Admin: 01/08/19 04:03 Dose: 200 mls/hr Admin: 01/07/19 20:22 Dose: 200 mls/hr Sodium Chloride (Normal Saline) 1,000 mls @ 0 mls/hr IV ASDIRECTED [facility] Last Admin: 01/10/19 22:42 Dose: 100 mls/hr Infusion: 01/10/19 19:26 Dose: 100 mls/hr Admin: 01/10/19 09:26 Dose: 100 mls/hr Infusion: 01/10/19 05:51 Dose: 100 mls/hr Admin: 01/09/19 19:51 Dose: 100 mls/hr Vancomycin HCl 1.3 gm/ Sodium (Chloride) 250 mls @ 167 mls/hr IV Q8H [facility] Last Admin: 01/12/19 16:52 Dose: 167 mls/hr Magnesium Hydroxide (Milk Of Magnesia) 30 ml PO BID PRN PRN Reason: Constipation Last Admin: 01/07/19 11:20 Dose: 30 ml Admin: 01/06/19 14:43 Dose: 30 ml Morphine Sulfate (Morphine) 1 - 3 mg IVPUSH Q1H PRN PRN Reason: Pain Last Admin: 01/05/19 05:44 Dose: 2 mg Admin: 01/05/19 04:43 Dose: 2 mg Admin: 01/05/19 02:57 Dose: 2 mg Admin: 01/05/19 01:43 Dose: 2 mg Admin: 01/05/19 00:26 Dose: 2 mg Admin: 01/04/19 23:18 Dose: 2 mg Admin: 01/04/19 20:47 Dose: 2 mg Nicotine (Habitrol) 14 mg TRDERM DAILY PRN PRN Reason: smoking Ondansetron HCl (Zofran) 4 mg IVPUSH Q8H PRN PRN Reason: Nausea/Vomiting Last Admin: 01/06/19 14:39 Dose: 4 mg Oxycodone/Acetaminophen (Percocet 325-5 Mg) 0 tab PO Q4H PRN PRN Reason: Pain Last Admin: 01/12/19 14:24 Dose: 2 tab Admin: 01/12/19 10:34 Dose: 2 tab Admin: 01/12/19 06:23 Dose: 2 tab Admin: 01/12/19 02:07 Dose: 2 tab Admin: 01/11/19 22:07 Dose: 2 tab Admin: 01/11/19 18:10 Dose: 2 tab Admin: 01/11/19 14:07 Dose: 2 tab Admin: 01/11/19 09:02 Dose: 2 tab Admin: 01/11/19 05:15 Dose: 2 tab Admin: 01/11/19 00:58 Dose: 2 tab Admin: 01/10/19 20:59 Dose: 2 tab Scopolamine (Transderm-Scop) 1.5 mg TOP ONETIME PRN PRN Reason: Nausea - Assessment Assessment (Free Text/Narrative):: WBC remains elevated at 16K. No fever. Eating well. He looks well. Pathology returned, Dr. Grullon would like to wait until Tuesday to discuss it with him as he will be here then. - Plan Plan (Free Text/Narrative):: Continue antibiotics.
[2019-01-13] MEDS: Vancomycin 1.3 GM in Sodium Chloride 0.9% 250 ML IV SCH ×4 (00:03→23:55)
[2019-01-13] MEDS: Acetaminophen/oxyCODONE 325-5 MG Tab PO PRN ×6 (03:02→23:55)
[2019-01-13] MEDS: Piperacillin/Tazobactam/Dext 4.5 GM in Premix Bag 1 BAG IV SCH ×3 (04:32→20:00)
[2019-01-13] MEDS: Enoxaparin 40 MG/0.4 ML Syringe SUBCUT SCH (08:46)
[2019-01-13] MEDS: Docusate Sodium 100 MG Cap PO SCH ×2 (08:46→20:02)
--- NOTE | 2019-01-13 10:43 | PCM.SURGPN ---
- General Info Date of Service: 01/13/19 Date of Surgery/Procedure: 01/05/19 POD#: 8 Post-Op Diagnosis: Perforated appendicitis Admission Diagnosis/Problem: Appendicitis Functional Status: Reports: Pain Controlled, Tolerating Diet, Ambulating, Urinating - Review of Systems General: Reports: No Symptoms HEENT: Reports: No Symptoms Pulmonary: Reports: No Symptoms Cardiovascular: Reports: No Symptoms Gastrointestinal: Reports: No Symptoms, Flatus. Denies: Abdominal Pain Genitourinary: Reports: No Symptoms Musculoskeletal: Reports: No Symptoms Skin: Reports: No Symptoms Neurological: Reports: No Symptoms Psychiatric: Reports: No Symptoms - Patient Data Vitals - Most Recent: Last Vital Signs Temp 96.8 F 01/13/19 07:39 Pulse 69 01/13/19 04:00 Resp 16 01/13/19 07:39 BP 137/72 01/13/19 07:39 Pulse Ox 95 01/13/19 07:39 Weight - Most Recent: 199 lb 4.766 oz I&O - Last 24 Hours: Intake & Output 01/12/19 01/13/19 01/13/19 22:59 06:59 14:59 Intake Total 1000 1500 Output Total 20 10 Balance 980 [id number] Lab Results Last 24 Hrs: Laboratory Results - last 24 hr 01/12/19 01/13/19 Range/Units 13:15 05:18 WBC 15.1 H (4.5-11.0) K/uL RBC 3.78 L (4.30-5.90) M/uL Hgb 11.4 L (12.0-15.0) g/dL Hct 35.7 L (40.0-54.0) % MCV 94 (80-98) fL MCH 30 (27-31) pg MCHC 32 (32-36) % Plt Count 660 H (150-400) K/uL Vancomycin Trough 20.0 (10.0-20.0) ug/mL Neeraj Results Last 24 Hrs: Microbiology 01/09/19 17:25 Gram Stain - Final Abdominal Fluid - Aspirate Wound Culture - Final NO GROWTH AFTER 3 DAYS Anaerobic Culture - Final NO GROWTH AFTER 3 DAYS Med Orders - Current: Current Medications Calcium Carbonate/Glycine (Tums) 1,000 mg PO Q2H PRN PRN Reason: Indigestion Last Admin: 01/06/19 17:17 Dose: 1,000 mg Diphenhydramine HCl (Benadryl) 25 - 50 mg IVPUSH Q4H PRN PRN Reason: Itching Diphenhydramine HCl (Benadryl) 25 - 50 mg PO Q4H PRN PRN Reason: Itching Last Admin: 01/04/19 22:27 Dose: 50 mg Docusate Sodium (Colace) 100 mg PO BID [facility] Last Admin: 01/13/19 08:46 Dose: 100 mg Enoxaparin Sodium (Lovenox) 40 mg SUBCUT DAILY [facility] Last Admin: 01/13/19 08:46 Dose: 40 mg Fentanyl (Sublimaze) 10 - 30 mcg IVPUSH Q1H PRN PRN Reason: Pain (severe 7-10) Last Admin: 01/10/19 19:33 Dose: 30 mcg Promethazine HCl 12.5 mg/ (Sodium Chloride) 50.5 mls @ 200 mls/hr IV Q6H PRN PRN Reason: Nausea/Vomiting Piperacillin/Tazobactam/ (Dextrose 4.5 gm/ Premix) 100 mls @ 200 mls/hr IV Q8H [facility] Last Admin: 01/13/19 04:32 Dose: 200 mls/hr Sodium Chloride (Normal Saline) 1,000 mls @ 0 mls/hr IV ASDIRECTED [facility] Last Admin: 01/10/19 22:42 Dose: 100 mls/hr Vancomycin HCl 1.3 gm/ Sodium (Chloride) 250 mls @ 167 mls/hr IV Q8H [facility] Last Admin: 01/13/19 08:44 Dose: 167 mls/hr Magnesium Hydroxide (Milk Of Magnesia) 30 ml PO BID PRN PRN Reason: Constipation Last Admin: 01/07/19 11:20 Dose: 30 ml Morphine Sulfate (Morphine) 1 - 3 mg IVPUSH Q1H PRN PRN Reason: Pain Last Admin: 01/05/19 05:44 Dose: 2 mg Nicotine (Habitrol) 14 mg TRDERM DAILY PRN PRN Reason: smoking Ondansetron HCl (Zofran) 4 mg IVPUSH Q8H PRN PRN Reason: Nausea/Vomiting Last Admin: 01/06/19 14:39 Dose: 4 mg Oxycodone/Acetaminophen (Percocet 325-5 Mg) 0 tab PO Q4H PRN PRN Reason: Pain Last Admin: 01/13/19 06:49 Dose: 2 tab Scopolamine (Transderm-Scop) 1.5 mg TOP ONETIME PRN PRN Reason: Nausea Discontinued Medications Hydrocodone Bitart/Acetaminophen (Corona 325-5 Mg) 1 - 2 tab PO Q4H PRN PRN Reason: Pain Last Admin: 01/10/19 16:43 Dose: 2 tab Bupivacaine HCl/Epinephrine Bitart (Marcaine 0.5%/Epinephrine 1:200,000) Confirm Administered Dose 50 ml .ROUTE .STK-MED ONE Stop: 01/05/19 09:03 Last Admin: 01/05/19 12:05 Dose: 40 ml Bupivacaine HCl/Epinephrine Bitart (Marcaine 0.5%/Epinephrine 1:200,000) Confirm Administered Dose 50 ml .ROUTE .STK-MED ONE Stop: 01/09/19 13:40 Last Admin: 01/09/19 17:08 Dose: 40 ml Ropivacaine 43 ml/Dexamethasone 8 mg/Epinephrine HCl 0.4 mg/ Sodium Chloride 34.6 ml 0 ml NERVRT ASDIRECTED [facility] Last Admin: 01/05/19 11:13 Dose: 80 syringe Dexamethasone (Dexamethasone) Confirm Administered Dose 4 mg .ROUTE .STK-MED ONE Stop: 01/05/19 08:05 Dexamethasone (Dexamethasone) Confirm Administered Dose 4 mg .ROUTE .STK-MED ONE Stop: 01/09/19 14:28 Fentanyl (Sublimaze) Confirm Administered Dose 250 mcg .ROUTE .STK-MED ONE Stop: 01/05/19 08:06 Fentanyl (Sublimaze) Confirm Administered Dose 250 mcg .ROUTE .STK-MED ONE Stop: 01/05/19 10:31 Fentanyl (Sublimaze) Confirm Administered Dose 250 mcg .ROUTE .STK-MED ONE Stop: 01/09/19 14:30 Glycopyrrolate (Robinul) Confirm Administered Dose 1 mg .ROUTE .STK-MED ONE Stop: 01/05/19 08:05 Glycopyrrolate (Robinul) Confirm Administered Dose 1 mg .ROUTE .STK-MED ONE Stop: 01/09/19 14:28 Hydromorphone HCl (Dilaudid) 0.5 mg IVPUSH ONETIME ONE Stop: 01/04/19 18:10 Last Admin: 01/04/19 18:16 Dose: 0.5 mg Hydromorphone HCl (Dilaudid) 0.5 mg IVPUSH ONETIME ONE Stop: 01/04/19 19:02 Last Admin: 01/04/19 19:05 Dose: 0.5 mg Hydroxyzine HCl (Vistaril) 100 mg IM ONETIME ONE Stop: 01/05/19 11:41 Last Admin: 01/05/19 11:43 Dose: 100 mg Sodium Chloride (Normal Saline) 1,000 mls @ 500 mls/hr IV ASDIRECTED [facility] Last Admin: 01/04/19 18:11 Dose: 500 mls/hr Ertapenem 1 gm/ Sodium (Chloride) 100 mls @ 200 mls/hr IV ONETIME ONE Stop: 01/04/19 19:40 Last Admin: 01/04/19 19:39 Dose: 200 mls/hr Piperacillin Sod/Tazobactam (Sod 4.5 gm/ Sodium Chloride) 100 mls @ 100 mls/hr IV Q8H [facility] Last Admin: 01/05/19 04:38 Dose: 100 mls/hr Sodium Chloride (Normal Saline) 1,000 mls @ 125 mls/hr IV ASDIRECTED [facility] Last Admin: 01/06/19 00:12 Dose: 125 mls/hr Piperacillin Sod/Tazobactam (Sod 4.5 gm/ Sodium Chloride) 100 mls @ 100 mls/hr IV Q8H [facility] Last Admin: 01/07/19 11:23 Dose: 100 mls/hr Lactated Ringer's (Ringers, Lactated) Confirm Administered Dose 1,000 mls @ as directed .ROUTE .STK-MED ONE Stop: 01/05/19 10:57 Vancomycin HCl 1.8 gm/ Sodium (Chloride) 500 mls @ 250 mls/hr IV ONETIME ONE Stop: 01/07/19 13:59 Last Admin: 01/07/19 12:26 Dose: 250 mls/hr Vancomycin HCl 1.35 gm/ Sodium (Chloride) 250 mls @ 167 mls/hr IV Q12H [facility] Last Admin: 01/09/19 14:25 Dose: Not Given Sodium Chloride (Normal Saline) 81 mls @ 3.5 mls/sec IV ASDIRECTED [facility] Last Admin: 01/09/19 10:43 Dose: 3.5 mls/sec Vancomycin HCl 1.5 gm/ Sodium (Chloride) 250 mls @ 167 mls/hr IV Q8H [facility] Last Admin: 01/12/19 05:15 Dose: 167 mls/hr Iohexol (Omnipaque) 20 ml PO ONETIME ONE Stop: 01/09/19 08:22 Last Admin: 01/09/19 08:56 Dose: 20 ml Iopamidol (Isovue-300 (61%)) 135 ml IV . DIRECTED ONE Stop: 01/09/19 09:54 Last Admin: 01/09/19 10:43 Dose: 135 ml Ketorolac Tromethamine (Toradol) Confirm Administered Dose 60 mg .ROUTE .STK- MED ONE Stop: 01/05/19 11:19 Ketorolac Tromethamine (Toradol) Confirm Administered Dose 60 mg .ROUTE .STK- MED ONE Stop: 01/09/19 17:01 Meropenem (Merrem) Confirm Administered Dose 500 mg .ROUTE .STK-MED ONE Stop: 01/05/19 11:00 Last Admin: 01/05/19 12:04 Dose: 500 mg Meropenem (Merrem) Confirm Administered Dose 500 mg .ROUTE .STK-MED ONE Stop: 01/09/19 16:51 Last Admin: 01/09/19 16:52 Dose: 500 mg Midazolam HCl (Versed 1 Mg/Ml) Confirm Administered Dose 2 mg .ROUTE .STK-MED ONE Stop: 01/09/19 16:01 Neostigmine Methylsulfate (Neostigmine) Confirm Administered Dose 5 mg .ROUTE .STK-MED ONE Stop: 01/05/19 08:05 Neostigmine Methylsulfate (Neostigmine) Confirm Administered Dose 5 mg .ROUTE .STK-MED ONE Stop: 01/09/19 14:28 Ondansetron HCl (Zofran) 4 mg IVPUSH ONETIME ONE Stop: 01/04/19 18:10 Last Admin: 01/04/19 18:15 Dose: 4 mg Ondansetron HCl (Zofran) Confirm Administered Dose 4 mg .ROUTE .STK-MED ONE Stop: 01/05/19 08:05 Ondansetron HCl (Zofran) Confirm Administered Dose 4 mg .ROUTE .STK-MED ONE Stop: 01/09/19 14:28 Propofol (Diprivan 20 Ml) Confirm Administered Dose 200 mg .ROUTE .STK-MED ONE Stop: 01/05/19 08:05 Propofol (Diprivan 20 Ml) Confirm Administered Dose 200 mg .ROUTE .STK-MED ONE Stop: 01/09/19 14:28 Pyridostigmine Saxon (Regonol) Confirm Administered Dose 10 mg .ROUTE .STK- MED ONE Stop: 01/09/19 14:57 Rocuronium Saxon (Zemuron) Confirm Administered Dose 50 mg .ROUTE .STK-MED ONE Stop: 01/05/19 08:05 Rocuronium Saxon (Zemuron) Confirm Administered Dose 50 mg .ROUTE .STK-MED ONE Stop: 01/09/19 14:28 Succinylcholine Chloride (Quelicin) Confirm Administered Dose 200 mg .ROUTE .STK -MED ONE Stop: 01/05/19 08:05 Succinylcholine Chloride (Quelicin) Confirm Administered Dose 200 mg .ROUTE .STK -MED ONE Stop: 01/09/19 14:28 Sugammadex Sodium (Bridion) Confirm Administered Dose 200 mg .ROUTE .STK-MED ONE Stop: 01/05/19 11:32 Vancomycin HCl (Vancomycin) 0 gm IV .PHARMACY TO DOSE [facility] Stop: 01/07/19 11:01 - Exam Wound/Incisions: Healing Well General: Alert, Oriented Lungs: Clear to Auscultation, Normal Respiratory Effort Cardiovascular: Regular Rate, Regular Rhythm GI/Abdominal Exam: Normal Bowel Sounds, Soft, Non-Tender, Other (HAI output down to 15 ml's each for 24 hours. ) Extremities: Normal Inspection Skin: Warm, Dry, Intact Neurological: No New Focal Deficit Psy/Mental Status: Alert, Normal Affect - Problem List & Annotations (1) Appendicitis SNOMED Code(s): 53679930 Code(s): K37 - UNSPECIFIED APPENDICITIS Status: Acute Current Visit: Yes Qualifiers: Appendicitis type: acute appendicitis Acute appendicitis type: with localized peritonitis Appendicitis perforation presence: with perforation Appendicitis abscess presence: without abscess - Problem List Review Problem List Initiated/Reviewed/Updated: Yes - My Orders Last 24 Hours: Active Orders 24 hr Category Date Time Status CBC W/O DIFF,HEMOGRAM [HEME] DAILY Lab 01/14/19 05:11 Ordered CBC W/O DIFF,HEMOGRAM [HEME] DAILY Lab 01/15/19 05:11 Ordered CBC W/O DIFF,HEMOGRAM [HEME] DAILY Lab 01/16/19 05:11 Ordered Vancomycin 1.3 gm Med 01/12/19 16:00 Active Sodium Chloride 0.9% [Normal Saline] 250 ml IV Q8H Medication Orders Calcium Carbonate/Glycine (Tums) 1,000 mg PO Q2H PRN PRN Reason: Indigestion Last Admin: 01/06/19 17:17 Dose: 1,000 mg Diphenhydramine HCl (Benadryl) 25 - 50 mg IVPUSH Q4H PRN PRN Reason: Itching Diphenhydramine HCl (Benadryl) 25 - 50 mg PO Q4H PRN PRN Reason: Itching Last Admin: 01/04/19 22:27 Dose: 50 mg Docusate Sodium (Colace) 100 mg PO BID [facility] Last Admin: 01/13/19 08:46 Dose: 100 mg Admin: 01/12/19 20:23 Dose: 100 mg Admin: 01/12/19 09:05 Dose: 100 mg Admin: 01/11/19 21:13 Dose: 100 mg Admin: 01/11/19 09:02 Dose: 100 mg Admin: 01/10/19 20:59 Dose: 100 mg Admin: 01/10/19 09:29 Dose: 100 mg Admin: 01/09/19 20:47 Dose: Not Given Admin: 01/09/19 10:25 Dose: 100 mg Admin: 01/08/19 20:31 Dose: Not Given Admin: 01/08/19 10:48 Dose: 100 mg Admin: 01/07/19 21:30 Dose: 100 mg Admin: 01/07/19 09:30 Dose: 100 mg Admin: 01/06/19 20:54 Dose: 100 mg Admin: 01/06/19 10:39 Dose: 100 mg Enoxaparin Sodium (Lovenox) 40 mg SUBCUT DAILY [facility] Last Admin: 01/13/19 08:46 Dose: 40 mg Admin: 01/12/19 09:05 Dose: 40 mg Admin: 01/11/19 09:02 Dose: 40 mg Admin: 01/10/19 09:29 Dose: 40 mg Admin: 01/09/19 10:25 Dose: 40 mg Admin: 01/08/19 10:48 Dose: 40 mg Admin: 01/07/19 09:30 Dose: 40 mg Admin: 01/06/19 09:19 Dose: 40 mg Fentanyl (Sublimaze) 10 - 30 mcg IVPUSH Q1H PRN PRN Reason: Pain (severe 7-10) Last Admin: 01/10/19 19:33 Dose: 30 mcg Admin: 01/10/19 12:58 Dose: 30 mcg Admin: 01/10/19 08:23 Dose: 10 mcg Admin: 01/10/19 00:22 Dose: 30 mcg Admin: 01/09/19 19:21 Dose: 30 mcg Admin: 01/05/19 09:47 Dose: 30 mcg Admin: 01/05/19 08:45 Dose: 30 mcg Admin: 01/05/19 07:50 Dose: 30 mcg Admin: 01/05/19 06:45 Dose: 30 mcg Admin: 01/04/19 22:26 Dose: 30 mcg Promethazine HCl 12.5 mg/ (Sodium Chloride) 50.5 mls @ 200 mls/hr IV Q6H PRN PRN Reason: Nausea/Vomiting Piperacillin/Tazobactam/ (Dextrose 4.5 gm/ Premix) 100 mls @ 200 mls/hr IV Q8H [facility] Last Admin: 01/13/19 04:32 Dose: 200 mls/hr Admin: 01/12/19 20:22 Dose: 200 mls/hr Admin: 01/12/19 12:07 Dose: 200 mls/hr Admin: 01/12/19 04:12 Dose: 200 mls/hr Admin: 01/11/19 21:10 Dose: 200 mls/hr Admin: 01/11/19 14:15 Dose: 200 mls/hr Admin: 01/11/19 03:19 Dose: 200 mls/hr Admin: 01/10/19 19:36 Dose: 200 mls/hr Admin: 01/10/19 11:32 Dose: 200 mls/hr Admin: 01/10/19 04:13 Dose: 200 mls/hr Admin: 01/09/19 19:52 Dose: 200 mls/hr Admin: 01/09/19 12:17 Dose: 200 mls/hr Admin: 01/09/19 03:03 Dose: 200 mls/hr Admin: 01/08/19 20:30 Dose: 200 mls/hr Admin: 01/08/19 12:12 Dose: 200 mls/hr Admin: 01/08/19 04:03 Dose: 200 mls/hr Admin: 01/07/19 20:22 Dose: 200 mls/hr Sodium Chloride (Normal Saline) 1,000 mls @ 0 mls/hr IV ASDIRECTED [facility] Last Admin: 01/10/19 22:42 Dose: 100 mls/hr Infusion: 01/10/19 19:26 Dose: 100 mls/hr Admin: 01/10/19 09:26 Dose: 100 mls/hr Infusion: 01/10/19 05:51 Dose: 100 mls/hr Admin: 01/09/19 19:51 Dose: 100 mls/hr Vancomycin HCl 1.3 gm/ Sodium (Chloride) 250 mls @ 167 mls/hr IV Q8H [facility] Last Admin: 01/13/19 08:44 Dose: 167 mls/hr Admin: 01/13/19 00:03 Dose: 167 mls/hr Admin: 01/12/19 16:52 Dose: 167 mls/hr Magnesium Hydroxide (Milk Of Magnesia) 30 ml PO BID PRN PRN Reason: Constipation Last Admin: 01/07/19 11:20 Dose: 30 ml Admin: 01/06/19 14:43 Dose: 30 ml Morphine Sulfate (Morphine) 1 - 3 mg IVPUSH Q1H PRN PRN Reason: Pain Last Admin: 01/05/19 05:44 Dose: 2 mg Admin: 01/05/19 04:43 Dose: 2 mg Admin: 01/05/19 02:57 Dose: 2 mg Admin: 01/05/19 01:43 Dose: 2 mg Admin: 01/05/19 00:26 Dose: 2 mg Admin: 01/04/19 23:18 Dose: 2 mg Admin: 01/04/19 20:47 Dose: 2 mg Nicotine (Habitrol) 14 mg TRDERM DAILY PRN PRN Reason: smoking Ondansetron HCl (Zofran) 4 mg IVPUSH Q8H PRN PRN Reason: Nausea/Vomiting Last Admin: 01/06/19 14:39 Dose: 4 mg Oxycodone/Acetaminophen (Percocet 325-5 Mg) 0 tab PO Q4H PRN PRN Reason: Pain Last Admin: 01/13/19 06:49 Dose: 2 tab Admin: 01/13/19 03:02 Dose: 2 tab Admin: 01/12/19 23:09 Dose: 2 tab Admin: 01/12/19 19:08 Dose: 2 tab Admin: 01/12/19 14:24 Dose: 2 tab Admin: 01/12/19 10:34 Dose: 2 tab Admin: 01/12/19 06:23 Dose: 2 tab Admin: 01/12/19 02:07 Dose: 2 tab Admin: 01/11/19 22:07 Dose: 2 tab Admin: 01/11/19 18:10 Dose: 2 tab Admin: 01/11/19 14:07 Dose: 2 tab Admin: 01/11/19 09:02 Dose: 2 tab Admin: 01/11/19 05:15 Dose: 2 tab Admin: 01/11/19 00:58 Dose: 2 tab Admin: 01/10/19 20:59 Dose: 2 tab Scopolamine (Transderm-Scop) 1.5 mg TOP ONETIME PRN PRN Reason: Nausea - Assessment Assessment (Free Text/Narrative):: WBC still elevated at 15,100. HAI output minimal. - Plan Plan (Free Text/Narrative):: Continue antibiotics. D/C HAI's.
[2019-01-13] MEDS: fentaNYL 100 MCG/2 ML SDV IVPUSH PRN (12:10)
[2019-01-14] MEDS: Piperacillin/Tazobactam/Dext 4.5 GM in Premix Bag 1 BAG IV SCH (03:57)
[2019-01-14] MEDS: Acetaminophen/oxyCODONE 325-5 MG Tab PO PRN ×5 (03:57→20:24)
[2019-01-14] MEDS: Vancomycin 1.3 GM in Sodium Chloride 0.9% 250 ML IV SCH ×3 (08:18→23:17)
[2019-01-14] MEDS: Enoxaparin 40 MG/0.4 ML Syringe SUBCUT SCH (08:26)
[2019-01-14] MEDS: Docusate Sodium 100 MG Cap PO SCH ×2 (08:26→20:24)
--- NOTE | 2019-01-14 13:13 | PCM.SURGPN ---
- General Info Date of Service: 01/14/19 Date of Surgery/Procedure: 01/05/19 POD#: 9 Functional Status: Reports: Pain Controlled, Tolerating Diet, Ambulating, Urinating - Review of Systems General: Reports: No Symptoms HEENT: Reports: No Symptoms Pulmonary: Reports: No Symptoms Cardiovascular: Reports: No Symptoms Gastrointestinal: Reports: No Symptoms, Flatus. Denies: Abdominal Pain, Nausea , Vomiting Genitourinary: Reports: No Symptoms Musculoskeletal: Reports: No Symptoms Skin: Reports: No Symptoms Neurological: Reports: No Symptoms Psychiatric: Reports: No Symptoms - Patient Data Vitals - Most Recent: Last Vital Signs Temp 97.5 F 01/14/19 11:45 Pulse 84 01/14/19 11:45 Resp 16 01/14/19 11:45 BP 141/75 H 01/14/19 11:45 Pulse Ox 97 01/14/19 11:45 Weight - Most Recent: 199 lb 4.766 oz I&O - Last 24 Hours: Intake & Output 01/13/19 01/14/19 01/14/19 22:59 06:59 14:59 Intake Total 450 2150 800 Output Total 600 Balance 450 2150 200 Lab Results Last 24 Hrs: Laboratory Results - last 24 hr 01/14/19 Range/Units 04:53 WBC 16.2 H (4.5-11.0) K/uL RBC 3.75 L (4.30-5.90) M/uL Hgb 11.3 L (12.0-15.0) g/dL Hct 35.5 L (40.0-54.0) % MCV 95 (80-98) fL MCH 30 (27-31) pg MCHC 32 (32-36) % Plt Count 694 H (150-400) K/uL Med Orders - Current: Current Medications Calcium Carbonate/Glycine (Tums) 1,000 mg PO Q2H PRN PRN Reason: Indigestion Last Admin: 01/06/19 17:17 Dose: 1,000 mg Diphenhydramine HCl (Benadryl) 25 - 50 mg IVPUSH Q4H PRN PRN Reason: Itching Diphenhydramine HCl (Benadryl) 25 - 50 mg PO Q4H PRN PRN Reason: Itching Last Admin: 01/04/19 22:27 Dose: 50 mg Docusate Sodium (Colace) 100 mg PO BID [facility] Last Admin: 01/14/19 08:26 Dose: 100 mg Enoxaparin Sodium (Lovenox) 40 mg SUBCUT DAILY [facility] Last Admin: 01/14/19 08:26 Dose: 40 mg Fentanyl (Sublimaze) 10 - 30 mcg IVPUSH Q1H PRN PRN Reason: Pain (severe 7-10) Last Admin: 01/13/19 12:10 Dose: 10 mcg Promethazine HCl 12.5 mg/ (Sodium Chloride) 50.5 mls @ 200 mls/hr IV Q6H PRN PRN Reason: Nausea/Vomiting Sodium Chloride (Normal Saline) 1,000 mls @ 0 mls/hr IV ASDIRECTED [facility] Last Admin: 01/10/19 22:42 Dose: 100 mls/hr Vancomycin HCl 1.3 gm/ Sodium (Chloride) 250 mls @ 167 mls/hr IV Q8H [facility] Last Admin: 01/14/19 08:18 Dose: 167 mls/hr Piperacillin Sod/Tazobactam (Sod 4.5 gm/ Sodium Chloride) 100 mls @ 200 mls/hr IV Q8H [facility] Magnesium Hydroxide (Milk Of Magnesia) 30 ml PO BID PRN PRN Reason: Constipation Last Admin: 01/07/19 11:20 Dose: 30 ml Morphine Sulfate (Morphine) 1 - 3 mg IVPUSH Q1H PRN PRN Reason: Pain Last Admin: 01/05/19 05:44 Dose: 2 mg Nicotine (Habitrol) 14 mg TRDERM DAILY PRN PRN Reason: smoking Ondansetron HCl (Zofran) 4 mg IVPUSH Q8H PRN PRN Reason: Nausea/Vomiting Last Admin: 01/06/19 14:39 Dose: 4 mg Oxycodone/Acetaminophen (Percocet 325-5 Mg) 0 tab PO Q4H PRN PRN Reason: Pain Last Admin: 01/14/19 12:16 Dose: 2 tab Scopolamine (Transderm-Scop) 1.5 mg TOP ONETIME PRN PRN Reason: Nausea Discontinued Medications Hydrocodone Bitart/Acetaminophen (Tacna 325-5 Mg) 1 - 2 tab PO Q4H PRN PRN Reason: Pain Last Admin: 01/10/19 16:43 Dose: 2 tab Bupivacaine HCl/Epinephrine Bitart (Marcaine 0.5%/Epinephrine 1:200,000) Confirm Administered Dose 50 ml .ROUTE .STK-MED ONE Stop: 01/05/19 09:03 Last Admin: 01/05/19 12:05 Dose: 40 ml Bupivacaine HCl/Epinephrine Bitart (Marcaine 0.5%/Epinephrine 1:200,000) Confirm Administered Dose 50 ml .ROUTE .STK-MED ONE Stop: 01/09/19 13:40 Last Admin: 01/09/19 17:08 Dose: 40 ml Ropivacaine 43 ml/Dexamethasone 8 mg/Epinephrine HCl 0.4 mg/ Sodium Chloride 34.6 ml 0 ml NERVRT ASDIRECTED [facility] Last Admin: 01/05/19 11:13 Dose: 80 syringe Dexamethasone (Dexamethasone) Confirm Administered Dose 4 mg .ROUTE .STK-MED ONE Stop: 01/05/19 08:05 Dexamethasone (Dexamethasone) Confirm Administered Dose 4 mg .ROUTE .STK-MED ONE Stop: 01/09/19 14:28 Fentanyl (Sublimaze) Confirm Administered Dose 250 mcg .ROUTE .STK-MED ONE Stop: 01/05/19 08:06 Fentanyl (Sublimaze) Confirm Administered Dose 250 mcg .ROUTE .STK-MED ONE Stop: 01/05/19 10:31 Fentanyl (Sublimaze) Confirm Administered Dose 250 mcg .ROUTE .STK-MED ONE Stop: 01/09/19 14:30 Glycopyrrolate (Robinul) Confirm Administered Dose 1 mg .ROUTE .STK-MED ONE Stop: 01/05/19 08:05 Glycopyrrolate (Robinul) Confirm Administered Dose 1 mg .ROUTE .STK-MED ONE Stop: 01/09/19 14:28 Hydromorphone HCl (Dilaudid) 0.5 mg IVPUSH ONETIME ONE Stop: 01/04/19 18:10 Last Admin: 01/04/19 18:16 Dose: 0.5 mg Hydromorphone HCl (Dilaudid) 0.5 mg IVPUSH ONETIME ONE Stop: 01/04/19 19:02 Last Admin: 01/04/19 19:05 Dose: 0.5 mg Hydroxyzine HCl (Vistaril) 100 mg IM ONETIME ONE Stop: 01/05/19 11:41 Last Admin: 01/05/19 11:43 Dose: 100 mg Sodium Chloride (Normal Saline) 1,000 mls @ 500 mls/hr IV ASDIRECTED [facility] Last Admin: 01/04/19 18:11 Dose: 500 mls/hr Ertapenem 1 gm/ Sodium (Chloride) 100 mls @ 200 mls/hr IV ONETIME ONE Stop: 01/04/19 19:40 Last Admin: 01/04/19 19:39 Dose: 200 mls/hr Piperacillin Sod/Tazobactam (Sod 4.5 gm/ Sodium Chloride) 100 mls @ 100 mls/hr IV Q8H [facility] Last Admin: 01/05/19 04:38 Dose: 100 mls/hr Sodium Chloride (Normal Saline) 1,000 mls @ 125 mls/hr IV ASDIRECTED [facility] Last Admin: 01/06/19 00:12 Dose: 125 mls/hr Piperacillin Sod/Tazobactam (Sod 4.5 gm/ Sodium Chloride) 100 mls @ 100 mls/hr IV Q8H [facility] Last Admin: 01/07/19 11:23 Dose: 100 mls/hr Lactated Ringer's (Ringers, Lactated) Confirm Administered Dose 1,000 mls @ as directed .ROUTE .STK-MED ONE Stop: 01/05/19 10:57 Vancomycin HCl 1.8 gm/ Sodium (Chloride) 500 mls @ 250 mls/hr IV ONETIME ONE Stop: 01/07/19 13:59 Last Admin: 01/07/19 12:26 Dose: 250 mls/hr Vancomycin HCl 1.35 gm/ Sodium (Chloride) 250 mls @ 167 mls/hr IV Q12H [facility] Last Admin: 01/09/19 14:25 Dose: Not Given Piperacillin/Tazobactam/ (Dextrose 4.5 gm/ Premix) 100 mls @ 200 mls/hr IV Q8H [facility] Last Admin: 01/14/19 03:57 Dose: 200 mls/hr Sodium Chloride (Normal Saline) 81 mls @ 3.5 mls/sec IV ASDIRECTED [facility] Last Admin: 01/09/19 10:43 Dose: 3.5 mls/sec Vancomycin HCl 1.5 gm/ Sodium (Chloride) 250 mls @ 167 mls/hr IV Q8H [facility] Last Admin: 01/12/19 05:15 Dose: 167 mls/hr Iohexol (Omnipaque) 20 ml PO ONETIME ONE Stop: 01/09/19 08:22 Last Admin: 01/09/19 08:56 Dose: 20 ml Iopamidol (Isovue-300 (61%)) 135 ml IV . DIRECTED ONE Stop: 01/09/19 09:54 Last Admin: 01/09/19 10:43 Dose: 135 ml Ketorolac Tromethamine (Toradol) Confirm Administered Dose 60 mg .ROUTE .STK- MED ONE Stop: 01/05/19 11:19 Ketorolac Tromethamine (Toradol) Confirm Administered Dose 60 mg .ROUTE .STK- MED ONE Stop: 01/09/19 17:01 Meropenem (Merrem) Confirm Administered Dose 500 mg .ROUTE .STK-MED ONE Stop: 01/05/19 11:00 Last Admin: 01/05/19 12:04 Dose: 500 mg Meropenem (Merrem) Confirm Administered Dose 500 mg .ROUTE .STK-MED ONE Stop: 01/09/19 16:51 Last Admin: 01/09/19 16:52 Dose: 500 mg Midazolam HCl (Versed 1 Mg/Ml) Confirm Administered Dose 2 mg .ROUTE .STK-MED ONE Stop: 01/09/19 16:01 Neostigmine Methylsulfate (Neostigmine) Confirm Administered Dose 5 mg .ROUTE .STK-MED ONE Stop: 01/05/19 08:05 Neostigmine Methylsulfate (Neostigmine) Confirm Administered Dose 5 mg .ROUTE .STK-MED ONE Stop: 01/09/19 14:28 Ondansetron HCl (Zofran) 4 mg IVPUSH ONETIME ONE Stop: 01/04/19 18:10 Last Admin: 01/04/19 18:15 Dose: 4 mg Ondansetron HCl (Zofran) Confirm Administered Dose 4 mg .ROUTE .STK-MED ONE Stop: 01/05/19 08:05 Ondansetron HCl (Zofran) Confirm Administered Dose 4 mg .ROUTE .STK-MED ONE Stop: 01/09/19 14:28 Propofol (Diprivan 20 Ml) Confirm Administered Dose 200 mg .ROUTE .STK-MED ONE Stop: 01/05/19 08:05 Propofol (Diprivan 20 Ml) Confirm Administered Dose 200 mg .ROUTE .STK-MED ONE Stop: 01/09/19 14:28 Pyridostigmine Hudgins (Regonol) Confirm Administered Dose 10 mg .ROUTE .STK- MED ONE Stop: 01/09/19 14:57 Rocuronium Hudgins (Zemuron) Confirm Administered Dose 50 mg .ROUTE .STK-MED ONE Stop: 01/05/19 08:05 Rocuronium Hudgins (Zemuron) Confirm Administered Dose 50 mg .ROUTE .STK-MED ONE Stop: 01/09/19 14:28 Succinylcholine Chloride (Quelicin) Confirm Administered Dose 200 mg .ROUTE .STK -MED ONE Stop: 01/05/19 08:05 Succinylcholine Chloride (Quelicin) Confirm Administered Dose 200 mg .ROUTE .STK -MED ONE Stop: 01/09/19 14:28 Sugammadex Sodium (Bridion) Confirm Administered Dose 200 mg .ROUTE .STK-MED ONE Stop: 01/05/19 11:32 Vancomycin HCl (Vancomycin) 0 gm IV .PHARMACY TO DOSE [facility] Stop: 01/07/19 11:01 - Exam Wound/Incisions: Healing Well General: Alert, Oriented, Cooperative, No Acute Distress Lungs: Clear to Auscultation, Normal Respiratory Effort Cardiovascular: Regular Rate, Regular Rhythm GI/Abdominal Exam: Normal Bowel Sounds, Soft, Non-Tender, No Distention Skin: Warm, Dry, Intact Neurological: No New Focal Deficit Psy/Mental Status: Alert, Normal Affect, Normal Mood - Problem List & Annotations (1) Appendicitis SNOMED Code(s): 66853660 Code(s): K37 - UNSPECIFIED APPENDICITIS Status: Acute Current Visit: Yes Qualifiers: Appendicitis type: acute appendicitis Acute appendicitis type: with localized peritonitis Appendicitis perforation presence: with perforation Appendicitis abscess presence: without abscess - Problem List Review Problem List Initiated/Reviewed/Updated: Yes - My Orders Last 24 Hours: Active Orders 24 hr Category Date Time Status CBC W/O DIFF,HEMOGRAM [HEME] DAILY Lab 01/15/19 05:11 Ordered CBC W/O DIFF,HEMOGRAM [HEME] DAILY Lab 01/16/19 05:11 Ordered Piperacillin/Tazobactam [Zosyn] 4.5 gm Med 01/14/19 14:00 Active Sodium Chloride 0.9% [Normal Saline] 100 ml IV Q8H Medication Orders Calcium Carbonate/Glycine (Tums) 1,000 mg PO Q2H PRN PRN Reason: Indigestion Last Admin: 01/06/19 17:17 Dose: 1,000 mg Diphenhydramine HCl (Benadryl) 25 - 50 mg IVPUSH Q4H PRN PRN Reason: Itching Diphenhydramine HCl (Benadryl) 25 - 50 mg PO Q4H PRN PRN Reason: Itching Last Admin: 01/04/19 22:27 Dose: 50 mg Docusate Sodium (Colace) 100 mg PO BID [facility] Last Admin: 01/14/19 08:26 Dose: 100 mg Admin: 01/13/19 20:02 Dose: 100 mg Admin: 01/13/19 08:46 Dose: 100 mg Admin: 01/12/19 20:23 Dose: 100 mg Admin: 01/12/19 09:05 Dose: 100 mg Admin: 01/11/19 21:13 Dose: 100 mg Admin: 01/11/19 09:02 Dose: 100 mg Admin: 01/10/19 20:59 Dose: 100 mg Admin: 01/10/19 09:29 Dose: 100 mg Admin: 01/09/19 20:47 Dose: Not Given Admin: 01/09/19 10:25 Dose: 100 mg Admin: 01/08/19 20:31 Dose: Not Given Admin: 01/08/19 10:48 Dose: 100 mg Admin: 01/07/19 21:30 Dose: 100 mg Admin: 01/07/19 09:30 Dose: 100 mg Admin: 01/06/19 20:54 Dose: 100 mg Admin: 01/06/19 10:39 Dose: 100 mg Enoxaparin Sodium (Lovenox) 40 mg SUBCUT DAILY [facility] Last Admin: 01/14/19 08:26 Dose: 40 mg Admin: 01/13/19 08:46 Dose: 40 mg Admin: 01/12/19 09:05 Dose: 40 mg Admin: 01/11/19 09:02 Dose: 40 mg Admin: 01/10/19 09:29 Dose: 40 mg Admin: 01/09/19 10:25 Dose: 40 mg Admin: 01/08/19 10:48 Dose: 40 mg Admin: 01/07/19 09:30 Dose: 40 mg Admin: 01/06/19 09:19 Dose: 40 mg Fentanyl (Sublimaze) 10 - 30 mcg IVPUSH Q1H PRN PRN Reason: Pain (severe 7-10) Last Admin: 01/13/19 12:10 Dose: 10 mcg Admin: 01/10/19 19:33 Dose: 30 mcg Admin: 01/10/19 12:58 Dose: 30 mcg Admin: 01/10/19 08:23 Dose: 10 mcg Admin: 01/10/19 00:22 Dose: 30 mcg Admin: 01/09/19 19:21 Dose: 30 mcg Admin: 01/05/19 09:47 Dose: 30 mcg Admin: 01/05/19 08:45 Dose: 30 mcg Admin: 01/05/19 07:50 Dose: 30 mcg Admin: 01/05/19 06:45 Dose: 30 mcg Admin: 01/04/19 22:26 Dose: 30 mcg Promethazine HCl 12.5 mg/ (Sodium Chloride) 50.5 mls @ 200 mls/hr IV Q6H PRN PRN Reason: Nausea/Vomiting Sodium Chloride (Normal Saline) 1,000 mls @ 0 mls/hr IV ASDIRECTED [facility] Last Admin: 01/10/19 22:42 Dose: 100 mls/hr Infusion: 01/10/19 19:26 Dose: 100 mls/hr Admin: 01/10/19 09:26 Dose: 100 mls/hr Infusion: 01/10/19 05:51 Dose: 100 mls/hr Admin: 01/09/19 19:51 Dose: 100 mls/hr Vancomycin HCl 1.3 gm/ Sodium (Chloride) 250 mls @ 167 mls/hr IV Q8H [facility] Last Admin: 01/14/19 08:18 Dose: 167 mls/hr Admin: 01/13/19 23:55 Dose: 167 mls/hr Admin: 01/13/19 16:15 Dose: 167 mls/hr Admin: 01/13/19 08:44 Dose: 167 mls/hr Admin: 01/13/19 00:03 Dose: 167 mls/hr Admin: 01/12/19 16:52 Dose: 167 mls/hr Piperacillin Sod/Tazobactam (Sod 4.5 gm/ Sodium Chloride) 100 mls @ 200 mls/hr IV Q8H [facility] Magnesium Hydroxide (Milk Of Magnesia) 30 ml PO BID PRN PRN Reason: Constipation Last Admin: 01/07/19 11:20 Dose: 30 ml Admin: 01/06/19 14:43 Dose: 30 ml Morphine Sulfate (Morphine) 1 - 3 mg IVPUSH Q1H PRN PRN Reason: Pain Last Admin: 01/05/19 05:44 Dose: 2 mg Admin: 01/05/19 04:43 Dose: 2 mg Admin: 01/05/19 02:57 Dose: 2 mg Admin: 01/05/19 01:43 Dose: 2 mg Admin: 01/05/19 00:26 Dose: 2 mg Admin: 01/04/19 23:18 Dose: 2 mg Admin: 01/04/19 20:47 Dose: 2 mg Nicotine (Habitrol) 14 mg TRDERM DAILY PRN PRN Reason: smoking Ondansetron HCl (Zofran) 4 mg IVPUSH Q8H PRN PRN Reason: Nausea/Vomiting Last Admin: 01/06/19 14:39 Dose: 4 mg Oxycodone/Acetaminophen (Percocet 325-5 Mg) 0 tab PO Q4H PRN PRN Reason: Pain Last Admin: 01/14/19 12:16 Dose: 2 tab Admin: 01/14/19 08:17 Dose: 2 tab Admin: 01/14/19 03:57 Dose: 2 tab Admin: 01/13/19 23:55 Dose: 2 tab Admin: 01/13/19 20:02 Dose: 2 tab Admin: 01/13/19 15:42 Dose: 2 tab Admin: 01/13/19 11:18 Dose: 2 tab Admin: 01/13/19 06:49 Dose: 2 tab Admin: 01/13/19 03:02 Dose: 2 tab Admin: 01/12/19 23:09 Dose: 2 tab Admin: 01/12/19 19:08 Dose: 2 tab Admin: 01/12/19 14:24 Dose: 2 tab Admin: 01/12/19 10:34 Dose: 2 tab Admin: 01/12/19 06:23 Dose: 2 tab Admin: 01/12/19 02:07 Dose: 2 tab Admin: 01/11/19 22:07 Dose: 2 tab Admin: 01/11/19 18:10 Dose: 2 tab Admin: 01/11/19 14:07 Dose: 2 tab Admin: 01/11/19 09:02 Dose: 2 tab Admin: 01/11/19 05:15 Dose: 2 tab Admin: 01/11/19 00:58 Dose: 2 tab Admin: 01/10/19 20:59 Dose: 2 tab Scopolamine (Transderm-Scop) 1.5 mg TOP ONETIME PRN PRN Reason: Nausea - Assessment Assessment (Free Text/Narrative):: Doing well. WBC still up at 16K. - Plan Plan (Free Text/Narrative):: Continue antibiotics. Dr. Grullon will be back tomorrow to discuss his care.
[2019-01-14] MEDS: Piperacillin/Tazobactam 4.5 GM in Sodium Chloride 0.9% 100 ML IV SCH ×2 (14:02→21:14)
[2019-01-15] MEDS: Acetaminophen/oxyCODONE 325-5 MG Tab PO PRN ×2 (00:32→04:44)
[2019-01-15] MEDS: Piperacillin/Tazobactam 4.5 GM in Sodium Chloride 0.9% 100 ML IV SCH (05:38)
[2019-01-15] MEDS: Vancomycin 1.3 GM in Sodium Chloride 0.9% 250 ML IV SCH (07:54)
[2019-01-15] MEDS: Docusate Sodium 100 MG Cap PO SCH (09:15)
[2019-01-15] MEDS: Enoxaparin 40 MG/0.4 ML Syringe SUBCUT SCH (09:19)
--- NOTE | 2019-01-15 12:40 | PN ---
DATE OF SERVICE: 01/15/2019 SUBJECTIVE: The patient is doing well. Pain is well controlled. No nausea, vomiting, shortness of breath, or chest pain. OBJECTIVE: VITAL SIGNS: Vital signs are stable. CARDIOVASCULAR: Regular rhythm and rate. RESPIRATORY: Lungs are clear to auscultation bilaterally. ABDOMEN: Incision is healing well. No distention, rebound, or guarding. ASSESSMENT: Status post appendectomy. PLAN: Pathology was reviewed with the patient. Unfortunately, showed carcinoid. The patient did have appendicitis in conjunction with this. The patient will be discharged today. Please see discharge summary for further details. Alejandro Grullon MD /[id number]
--- NOTE | 2019-01-15 12:40 | DISCH ---
DISCHARGE DIAGNOSIS: Status post appendectomy. SUMMARY OF HOSPITAL COURSE: A pleasant 53-year-old male who underwent a laparoscopic appendectomy. Pathology revealed Goblet cell carcinoid. The patient will be discharged today and follow up on . ACTIVITY: No lifting greater than 30 pounds x30 days. DISCHARGE MEDICATIONS: Will be Percocet for pain and Augmentin for 7 days. ADDITIONAL CONSULTATIONS DURING THIS HOSPITALIZATION: None.
== END 2019-01-15 10:30 | disposition home or self-care (01) | DRG 338 ==
LOC: JP.ED 16:50 → JP.MS 19:20
PROVIDERS: ADMIT Surgery; ATTEND Surgery
PROC: 0DTJ4ZZ Resection of Appendix, Percutaneous Endoscopic Approach (ICD-10-PCS; principal; 2019-01-05)
PROC: 0W9G4ZZ Drainage of Peritoneal Cavity, Percutaneous Endoscopic Approach (ICD-10-PCS; 2019-01-09)
DX: C18.1 Malignant neoplasm of appendix (principal); K35.33 Acute appendicitis with perforation, localized peritonitis, and gangrene, with abscess; K21.9 Gastro-esophageal reflux disease without esophagitis; Z87.891 Personal history of nicotine dependence
CPT/HCPCS: 36415; 74176; 74177; 80048; 80053; 80202; 82150; 83690; 85025; 85027; 85048; 86140; 87070; 87075; 87205; 88304; 88313; 88341; 88342; 96361; 96374; 96375; 96376; 99285-25; A9270-GY; J0171; J0330; J1100; J1170; J1335; J1650; J1885; J2185; J2250; J2270; J2405; J2543; J2704; J2710; J2795; J3010; J3370; J3410; J3490; J7030; J7040; J7050; J7120; Q9967

== ENCOUNTER 2019-02-02 07:30 | Inpatient (IN) | payer MEDICAID ==
[~2019-02-02 07:30] MED LIST: Bupivacaine 0.5%/EPINEPHrine 1:200,000 50 ML MDV ONE
[2019-02-02] MEDS ORDERED: fentaNYL 250 MCG/5 ML SDV ONE (08:30)
[2019-02-02] MEDS ORDERED: Sodium Chloride 0.9% 1,000 ML IV SCH ×2 (08:30→12:30)
[2019-02-02] MEDS ORDERED: fentaNYL 100 MCG/2 ML SDV ONE (08:30)
[2019-02-02] MEDS ORDERED: Midazolam 1 MG/ML 2 ML SDV ONE (08:30)
[2019-02-02] MEDS ORDERED: Sodium Chloride 0.9% 10 ML ONE (08:31)
[2019-02-02] MEDS ORDERED: Glycopyrrolate 0.2 MG/ML 5 ML MDV ONE (08:31)
[2019-02-02] MEDS ORDERED: Dexamethasone 4 MG/ML SDV ONE (08:31)
[2019-02-02] MEDS ORDERED: Rocuronium 50 MG/5 ML Vial ONE ×2 (08:31→10:47)
[2019-02-02] MEDS ORDERED: Ondansetron 4 MG/2 ML SDV ONE (08:31)
[2019-02-02] MEDS ORDERED: Neostigmine Methylsulfate 1 MG/ML 5 ML Syringe ONE (08:31)
[2019-02-02] MEDS ORDERED: Propofol 200 MG/20 ML SDV ONE (08:31)
[2019-02-02] MEDS ORDERED: ceFAZolin 2 GM in Sodium Chloride 0.9% 50 ML IV ONE (09:15)
[2019-02-02] MEDS ORDERED: ceFAZolin 2 GM in Premix Bag 1 BAG IV ONE (09:15)
[2019-02-02] MEDS ORDERED: metroNIDAZOLE/Normal Saline 500 MG in Premix Bag 1 BAG IV ONE (09:15)
[2019-02-02] MEDS ORDERED: Naloxone 0.4 MG/ML SDV IVPUSH PRN (09:30)
[2019-02-02] MEDS ORDERED: Lactated Ringers 1,000 ML ONE (11:08)
[2019-02-02] MEDS ORDERED: Ketorolac 60 MG/2 ML SDV ONE (11:42)
[2019-02-02] MEDS ORDERED: Scopolamine 1.5 MG Transdermal Patch TOP ONE (12:04)
[2019-02-02] MEDS ORDERED: diphenhydrAMINE 50 MG/ML SDV IVPUSH PRN ×3 (12:04→13:23)
[2019-02-02] MEDS ORDERED: Albuterol/Ipratropium 3.0-0.5 MG/3 ML Neb Soln NEB PRN (12:04)
[2019-02-02] MEDS ORDERED: Metoclopramide 10 MG/2 ML SDV IV PRN (12:04)
[2019-02-02] MEDS ORDERED: hydrOXYzine HCl 100 MG/2 ML SDV IM ONE (12:12)
[2019-02-02] MEDS ORDERED: Naloxone 0.4 MG/ML SDV IV PRN (13:23)
[2019-02-02] MEDS: fentaNYL 2,500 MCG in Sodium Chloride 0.9% 200 ML EPIDUR SCH (13:41)
--- NOTE | 2019-02-02 15:29 | OR ---
DATE OF PROCEDURE: 02/02/2019 SURGEON: Alejandro Grullon MD PROCEDURE: 1. Laparoscopic dissection for right hemicolectomy. 2. Open right hemicolectomy. COMPLICATION: None. BUILDING SPECIALIST: None. ANESTHETIC: Epidural. 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 SPECIMENS: Right colon. RISKS: Risks, benefits, alternatives, and limitations including, but not limited to infection, bleeding, injury to abdominal structures, the possibility of open surgery, the fistula formation, seroma, abscess, cardiovascular compromise, , and other risks not listed here were explained to the patient, who wished to proceed. PROCEDURE IN DETAIL: The patient was placed in supine position. The dissection would be performed in a classic manner. A supraumbilical incision was made. A Veress needle was used to enter the abdomen without abnormality. A drop test was performed without abnormality, and the abdomen was subsequently insufflated. This was followed by an Optiview trocar. No evidence of enterotomy or injury was noted. Three additional 5 mm ports would be entered, 1 in the suprapubic region and 2 in the right mid and upper abdomen in an arc ranging from the left hip. Immediately, it was noted that the patient had dense adhesions secondary to his malignancy, appendicitis, and subsequent postoperative inflammation. This stemmed around the fact the omentum had wrapped around the colon and small bowel and was densely adhered. The original approach was medial to lateral dissection; however, due to the dense adhesions, a lateral to medial approach was entertained. Dissection was continued, although there were dense adhesions noted. Eventually, the colon could be mobilized, although it was unable to be freed from the liver adhesions and from the gallbladder adhesions. After about 1-1/2 hours of dissection approximately, the open part of the procedure was then commenced. A small midline incision was made. This was carried down by placing a finger through the port incision and then dissecting down with the plasma blade. Once the abdomen was entered, no evidence of enterotomy or injury was noted. Dissection then continued with extensive lysis of adhesions. Part of the omentum was dissected and removed. The small bowel was adhered to itself. The small bowel was adhered to the large bowel and subsequently large bowel adhered to the gallbladder, liver, and other structures. The cecum was identified. This was mobilized by completing the lateral to medial approach. Eventually, this was freely mobilized. The ileocolic artery, right colic artery, and other associated arterial structures were identified. The ileocolic artery was identified and transected with a haro stapler vascular load. Eventually, the right colon would be resected. This was at a level with good vascular supply and the mesenteric artery was identified and preserved as best as possible. The duodenum would be identified during this procedure multiple times and was not interacted with anyway. This was true with the ureter of the right side also. The colon was then transected using 2 haro load staplers. The remainder of the omentum was removed using haro load staplers, vascular phan, and Harmonic scalpel equivalent. The small bowel and the colon were then approximated with Vicryl sutures. A [id number] functional end-to-end anastomosis would be performed. This was a double-staple load creating a double wide anastomosis. Four Allis clamps were then used to approximate the defect and the defect was subsequently closed. The mesenteric defect was also closed using 3-0 Vicryl. Tisseel was used on all after thorough irrigation. The other details of the anastomotic creation were using a plasma blade to create the defect, introduce a stapler, and using a large amount of towels to protect from contamination. After irrigation was completed, the liquid was then removed. This was inspected for any additional bleeding, which none was noted. The liver was inspected around the adhesions. This was noted to not have any studding or nodularities. The fascia was closed with #1 Vicryl running suture x2, subcutaneous tissues were closed with 3-0 Vicryl, and skin was closed with phan. The patient tolerated the procedure well. Alejandro Grullon MD /[id number]
[2019-02-02] MEDS ORDERED: Acetaminophen 1,000 MG in Premix Bag 1 BAG IV ONE (16:30)
[2019-02-03] MEDS: fentaNYL 2,500 MCG in Sodium Chloride 0.9% 200 ML EPIDUR SCH (02:15)
[2019-02-03] MEDS: SCOPOLAMINE PATCH CHECK TOP SCH (08:43)
[2019-02-03] MEDS: Celecoxib 200 MG Cap PO SCH (08:43)
[2019-02-03] MEDS: Enoxaparin 40 MG/0.4 ML Syringe SUBCUT SCH ×2 (08:44→21:09)
--- NOTE | 2019-02-03 09:04 | PN ---
DATE OF SERVICE: 02/03/2019 SUBJECTIVE: The patient is doing well. Pain is well controlled with the epidural. No nausea, vomiting, shortness of breath, or chest pain. He is not passing any gas yet. OBJECTIVE: VITAL SIGNS: Stable. He is afebrile. CARDIOVASCULAR: Regular rhythm and rate. RESPIRATORY: Lungs clear to auscultation bilaterally. SKIN: Dressings are intact. ASSESSMENT: Status post right hemicolectomy. PLAN: 1. Pain. We will continue the epidural. We will re-evaluate tomorrow morning, but this is doing quite well. No changes in settings. 2. Infectious Disease. White blood cell count is slightly elevated. This is typical in the postoperative period. 3. GI. We will continue to advance his diet. He is on Entereg. He will have Ensure Clear today. 4. Activity. The patient will continue to ambulate. 5. Prophylaxis. He is on Lovenox, sequential compression devices, and early ambulation. 6. Fluid, electrolyte, nutrition. We will decrease his IV fluids accordingly today. Alejandro Grullon MD /[id number]
[2019-02-03] MEDS ORDERED: hydrOXYzine HCl 100 MG/2 ML SDV IM PRN (12:16)
[2019-02-03] MEDS: Acetaminophen/oxyCODONE 325-10 MG Tab PO PRN ×3 (12:57→21:08)
[2019-02-03] MEDS: Morphine 2 MG/ML Syringe IVPUSH PRN ×2 (19:33→23:06)
[2019-02-03] MEDS ORDERED: Sodium Chloride 0.9% 1,000 ML with Naloxone 0.4 MG IV SCH ×2 (22:00)
[2019-02-04] MEDS: Acetaminophen/oxyCODONE 325-10 MG Tab PO PRN ×6 (01:04→21:06)
[2019-02-04] MEDS: Celecoxib 200 MG Cap PO SCH (08:53)
[2019-02-04] MEDS: Enoxaparin 40 MG/0.4 ML Syringe SUBCUT SCH ×2 (08:54→21:02)
[2019-02-04] MEDS: SCOPOLAMINE PATCH CHECK TOP SCH (08:55)
--- NOTE | 2019-02-04 11:26 | PN ---
DATE OF SERVICE: 02/04/2019 SUBJECTIVE: The patient continues to very slowly improve. Pain is well controlled. No nausea, vomiting, shortness of breath, or chest pain. He is passing a small amount of gas. OBJECTIVE: VITAL SIGNS: Stable. CARDIOVASCULAR: Regular rhythm and rate. RESPIRATORY: Lungs are clear to auscultation bilaterally. ABDOMEN: Dressing is intact, but wound is healing. ASSESSMENT: Status post right hemicolectomy. PLAN: The patient will shower today. Continue same diet today. He is passing a small amount of gas but anticipate a probable ileus due to the nature of the neuroendocrine tumor and its product. Nonetheless, no significant changes at this time. Await GI function. Alejandro Grullon MD /[id number]
[2019-02-04] MEDS: Morphine 2 MG/ML Syringe IVPUSH PRN ×3 (11:53→22:35)
[2019-02-05] MEDS: Acetaminophen/oxyCODONE 325-10 MG Tab PO PRN ×3 (01:15→10:12)
[2019-02-05] MEDS: Morphine 2 MG/ML Syringe IVPUSH PRN ×2 (03:27→07:23)
[2019-02-05] MEDS: Enoxaparin 40 MG/0.4 ML Syringe SUBCUT SCH (08:32)
[2019-02-05] MEDS: Celecoxib 200 MG Cap PO SCH (08:32)
--- NOTE | 2019-02-05 09:51 | PN ---
DATE OF SERVICE: 02/05/2019 SUBJECTIVE: The patient is doing very well. He is passing large amount of gas. No nausea, vomiting, shortness of breath, or chest pain. OBJECTIVE: VITAL SIGNS: Stable. He is afebrile. CARDIOVASCULAR: Regular rhythm and rate. RESPIRATORY: Lungs are clear to consultation bilaterally. ABDOMEN: Incision is healing well. ASSESSMENT: Status post right hemicolectomy. PLAN: We will continue the same diet today. Continue on Lovenox and same pain medication awaiting bowel movements. Alejandro Grullon MD /[id number]
--- NOTE | 2019-02-09 10:40 | DISCH ---
SUMMARY OF HOSPITAL COURSE: This is a pleasant 53-year-old male who underwent a right hemicolectomy secondary to a neuroendocrine tumor. The patient did well postoperatively. His pain is well controlled. No nausea, vomiting, shortness of breath, or chest pain. On postoperative day zero, the patient was initiated on a diet and continued to advance. The patient had bowel movements on postoperative day #2. His pain is well controlled with p.o. pain medications. FOLLOWUP: Surgery in 7 to 14 days. ACTIVITY: No lifting greater than 30 pounds x30 days. DISCHARGE MEDICATIONS: Please see MAR.
== END 2019-02-05 11:45 | disposition home or self-care (01) | DRG 331 ==
LOC: EDSTATUS 07:30 → JP.SDS 07:31 → JP.MS 07:31
PROVIDERS: ADMIT Surgery; ATTEND Surgery
PROC: 0DTF0ZZ Resection of Right Large Intestine, Open Approach (ICD-10-PCS; principal; 2019-02-02)
PROC: 0DNU0ZZ Release Omentum, Open Approach (ICD-10-PCS; 2019-02-02)
PROC: 0DJD4ZZ Inspection of Lower Intestinal Tract, Percutaneous Endoscopic Approach (ICD-10-PCS; 2019-02-02)
DX: D49.0 Neoplasm of unspecified behavior of digestive system (principal); K21.9 Gastro-esophageal reflux disease without esophagitis
CPT/HCPCS: 36415; 80048; 85025; 86850; 86900; 86901; 94762; A9270-GY; J0131; J0171; J0690; J1100; J1650; J1885; J2250; J2270; J2310; J2405; J2704; J2710; J2795; J3010; J3410; J3490; J7030; J7050; J7120

== ENCOUNTER 2019-03-29 06:30 | Day surgery (SDC) | payer MEDICAID ==
[2019-03-29] MEDS ORDERED: Lidocaine 1% with EPINEPHrine 1:100,000 50 ML MDV ONE (06:49)
[2019-03-29] MEDS ORDERED: Bupivacaine 0.5% 50 ML MDV ONE (06:49)
[2019-03-29] MEDS ORDERED: fentaNYL 100 MCG/2 ML SDV ONE (07:09)
[2019-03-29] MEDS ORDERED: Midazolam 1 MG/ML 2 ML SDV ONE (07:09)
[2019-03-29] MEDS ORDERED: Propofol 200 MG/20 ML SDV ONE ×4 (07:10→08:20)
[2019-03-29] MEDS ORDERED: Sodium Chloride 0.9% 1,000 ML IV SCH (07:15)
[2019-03-29] MEDS ORDERED: ceFAZolin 2 GM in Sodium Chloride 0.9% 50 ML IV ONE (07:30)
--- NOTE | 2019-03-29 09:21 | CRLCR ---
INDICATION: Chest port placement. COMPARISON: None. TECHNIQUE: Chest single view. FINDINGS: Left chest port tip overlies the SVC. Cardiomediastinal silhouette is within normal limits. No focal lung consolidation, pleural effusion or pneumothorax. IMPRESSION: Chest port tip in the SVC. Dictated by Jose Francisco Daly MD @ Mar 29 2019 9:16AM Signed by Dr. Jose Francisco Daly @ Mar 29 2019 9:19AM
--- NOTE | 2019-03-29 12:55 | OR ---
DATE OF PROCEDURE: 03/29/2019 SURGEON: Alejandro Grullon MD PROCEDURE: Port-A-Cath placement, left subclavian vein. COMPLICATIONS: None. DYSLEXIA TEACHER: None. ANESTHESIA: MAC/local. 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 PROCEDURE IN DETAIL: The patient was placed in supine position. The left subclavian vein was accessed using a micropuncture needle kit on the first pass. This was then exchanged for 35,000th wire under fluoroscopic guidance. Dilator was then introduced and subsequently the vein was dilated. Tubing was then placed in the superior vena cava. This was cut to size. Prior to this, the skin was anesthetized with lidocaine and a pocket had been created. This was then attached with the knuckle-type connector between the reservoir and the tubing. This was then sutured in place with multiple 3-0 Vicryl sutures. The subcutaneous tissues were closed with 3-0 Vicryl, skin was closed with 4-0 Vicryl, and Dermabond was applied. The patient tolerated the procedure well. Alejandro Grullon MD /[id number]
== END 2019-03-29 09:50 | disposition home or self-care (01) ==
LOC: JP.SDS 06:30
PROVIDERS: ATTEND Surgery
DX: C18.1 Malignant neoplasm of appendix (principal); K21.9 Gastro-esophageal reflux disease without esophagitis; F17.200 Nicotine dependence, unspecified, uncomplicated; Z90.49 Acquired absence of other specified parts of digestive tract
CPT/HCPCS: 36415; 36571; 71045; 80048; 85027; C1788; C1894; J0690; J1642; J2250; J2704; J3010; J3490; J7030; J7050

== ENCOUNTER 2022-01-26 06:36 | Day surgery (SDC) | payer MEDICAID ==
[2022-01-26] MEDS ORDERED: Lactated Ringers 1,000 ML IV SCH (07:00)
[2022-01-26] MEDS ORDERED: Propofol 200 MG/20 ML SDV ONE ×3 (07:20→08:48)
[2022-01-26] MEDS ORDERED: Midazolam 1 MG/ML 2 ML SDV ONE (07:20)
[2022-01-26] MEDS ORDERED: fentaNYL 50 MCG/ML SDV ONE (07:45)
== END 2022-01-26 10:00 | disposition home or self-care (01) ==
LOC: JP.SDS 06:36
PROVIDERS: ATTEND Student in an Organized Health Care Education/Training Program
DX: Z12.11 Encounter for screening for malignant neoplasm of colon (principal); D12.3 Benign neoplasm of transverse colon; Z90.49 Acquired absence of other specified parts of digestive tract; F17.200 Nicotine dependence, unspecified, uncomplicated
CPT/HCPCS: 45385; 88305; J2250; J2704; J3010; J7120